=== PATIENT | male | born 1945 | race Caucasian/White ===

== ENCOUNTER 2024-10-14 22:04 | Inpatient (IN) | payer OTHER, SELFPAY ==
[2024-10-14] VITALS (7 sets, daily range): BP systolic 127–142; BP diastolic 81–100; BMI 31.4
[2024-10-14 13:52] LABS: % Basophils 0.2 % (0-2); % Immature Granulocytes 0.6 % (0-0.5); % Lymphocytes 4.5 % (20.5-51.1); % Monocytes 2.1 % (1.7-9.3); % Neutrophils 92.6 % (42.2-75.2); Absolute Lymphocytes 0.3 10^3/uL (1.2-3.4); Absolute Monocytes 0.1 10^3/uL (0.1-0.6); Absolute Neutrophils 5.8 10^3/uL (1.4-6.5); Hemoglobin 14.2 g/dL (13.0-18.0); Mean Corp Hgb Conc. 34.6 g/dL (33.0-37.0); Mean Corpuscular Hgb 31.3 pg (27.0-31.0); Mean Corpuscular Volume 90.3 fL (80.0-94.0); Mean Platelet Volume 12.2 fL (7.4-10.4); Nucleated Red Blood Cells % 0.3 % (-); Platelet Count 123 10^3/uL (130-400); Red Blood Cell Count 4.54 10^6/uL (4.70-6.10); Red Cell Dist. Width 13.5 % (11.5-14.5); White Blood Cell Count 6.2 10^3/uL (4.8-10.8)
[2024-10-14 14:02] LABS: Lactic Acid 1.6 mmol/L (0.7-2.0)
[2024-10-14 14:04] LABS: COVID-19 Antigen Negative (Negative)
[2024-10-14 14:25] LABS: Albumin 3.7 g/dl (3.5-5.0); Alkaline Phosphatase 295 U/L (38-126); Blood Urea Nitrogen 26 mg/dl (9-20); Calcium 8.6 mg/dl (8.4-10.2); Carbon Dioxide 30 mmol/L (22-30); Chloride 96 mmol/L (98-107); Glucose 113 mg/dl (70-99); Potassium 3.7 mmol/L (3.5-5.1); Sodium 135 mmol/L (135-145); Total Bilirubin 7.5 mg/dl (0.2-1.3); Total Protein 6.2 g/dl (6.3-8.2); eGFR > 60.00
[2024-10-14 14:43] LABS: ALT (SGPT) 1894 U/L (0-50); AST (SGOT) 836 U/L (17-59)
--- NOTE | 2024-10-14 16:07 | ED.GENMED ---
History of Present Illness
General
Chief Complaint: Abnormal Lab Value
Source: patient
Exam Limitations: none
Time Seen by Provider: 10/14/24 15:55
Nursing documentation reviewed up to this point in time: agreed with
History of Present Illness
History of Present Illness:
Patient to ED with complaint of elevated liver enzymes and yellow urine. Symptoms started approx 3 days ago. History of ITP, [facility]. Has routine labs drawn every 2 mos. LFT elevation noted on routine draw yesterday. He was
hospitalized 10/03-10/08 at [place] for pneumonia. He was diagnosed with Lung CA during that stay. Has appt with [facility] scheduled for next week. Patient reports PET scan completed and no additionl cancer concerns identified. 3 days ago he was
placed on doxycycline for sinusitis. He is also currently on a prednisone taper as part of his pneumonia treatment. Denies fever/chills. No n/v/d. Brought to ED by family for eval.
Past History
Past History
ED Past Medical History: Cancer (lung, new diagnosis), GERD, NIDDM and Other (ITP)
Review of Systems
Review of Systems
Allergies reviewed?: Yes
All Other Systems: ROS reviewed and negative except as documented in HPI and ROS
Constitutional: Reports no symptoms
EENT: Reports other (mild scleral icterus)
Respiratory: Reports no symptoms
Cardiac: Reports no symptoms
ABD/GI: Reports no symptoms
: Reports other (Yellow urine)
Musculoskeletal: Reports no symptoms
Skin: Reports no symptoms
Neurological: Reports no symptoms
Psychiatric: Reports no symptoms
Phy Exam
General Physical Exam
General Presentation: mild distress
General age: appears stated age
General Skin: warm, dry and other (Jaundice)
General Habitus: normal
General Mental: alert
General Hydration: appears well hydrated
Gastrointestinal Exam
Gastrointestinal Exam: normal bowel sounds, non tender, no pulsatile mass and no cva tenderness
Musculoskeletal Exam
Musculoskeletal Exam: full ROM and neuro vasc intact
Skin Exam
Skin Exam: warm/dry, no rash and jaundice (Mild)
Psychiatric Exam
Psychiatric Exam: normal mood/affect
Course
Orders/Labs/Results
Orders:
Orders
10/14/24 13:36
COVID-19 Antigen Urgent
Source: Nasal Swab
Complete Blood Count/With Diff Urgent
Comprehensive Metabolic Panel Urgent
Direct Bilirubin Urgent
Comment: ADD ON
Lactic Acid Urgent
Lipase Urgent
Comment: ADD ON
Influenza A+B Rapid Molecular Urgent
ALICIA Source: Nasal Swab
Specimen Description:
10/14/24 15:56
Add On- LAB Urgent
Tests Added?: lipase
10/14/24 16:05
US Abdomen Complete/Upper Urgent
Comment:
Reason For Exam: Elevated LFT's
10/14/24 16:28
Hepatitis A IgM Antibody Urgent
Hepatitis B Core Ab, IgM Urgent
Hepatitis B Surface Antibody Urgent
Hepatitis B Surface Antigen Urgent
Hepatitis C Antibody Urgent
Urinalysis Reflex To Culture Urgent
Date Specimen was Collected: 10/14/24
Time Specimen was Collected: 16:27
10/14/24 18:02
CT Abd/pelvis W Iv Cont Urgent
Comment:
Reason For Exam: Elevated LFT's, surgery request
10/14/24 18:26
0.9% Sodium Chloride 1000 ml [Nss] 1,000 ml IV BOLUS
10/14/24 20:39
Consult Surgery [SURGICAL CONSULT] Urgent
Consulting Provider: Bryan White
Was physician already notified: Yes
10/14/24 21:52
Admit/Transfer Patient As Directed
Co-Sign Provider:
Level of Care: Inpatient admission
Assign to:: Telemetry
Physician / Group: namrata seymour
Diagnosis: acute pancreatitis /cysts conc cancer, transam conc stone,lung ca
Reason for Telemetry: Arrhythmia
Date to Stop Telemetry: 10/17/24
Time to Stop Telemetry: 11:00
Reason for Hospitalization: acute pancreatitis /cysts conc cancer, transam conc stone,lung ca
Expected length of stay greater than two midnights?: Yes
ELOS- Estimated Length of Stay in days: 5
I certify the patient meets the requirements for IP care: Yes
Code Status As Directed
Resuscitation Status: Full Code
10/14/24 21:56
PRN Pain Medication Management As Directed
May give lesser potent ordered pain med per pt: Yes
preference::
Protocol:: Medication orders for pain may be administered in a
manner that supports deferring to patient preference
when the pt is:
- Requesting an ordered lesser potent pain medication.
Least to most potent pain medications are defined
as: acetaminophen < NSAID < tramadol < opioids
(morphine, oxycodone, hydromorphone).
- Requesting a lesser dose of the same medication IF
ORDERED.
- Requesting a less intrusive route of administration
if both routes are prescribed by the provider (PO <
IV).
10/14/24 22:04
Consult Notification Routine
Specialty to Notify: Gastroenterology
Date consulting provider notified: 10/15/24
Time consulting provider notified: 07:30
Notified:: Provider
Comment: Dr. Bailey notified via tiger text
GASTROINTESTINAL CONSULT Routine
Consulting Provider: Victor Manuel Bailey
Was physician already notified: No
Reason for consult: pancrtic mass conc ca,lft's conc obst uct, hx lung ca
10/14/24 22:05
Consult Notification Routine
Specialty to Notify: Hematology
Date consulting provider notified: 10/15/24
Time consulting provider notified: 07:30
Notified:: Provider
Comment: Dr. Almanza notified via tiger text
HEMATOLOGY CONSULT Routine
Consulting Provider: Tyron Almanza
Was physician already notified: No
Reason for consult: pancrtic mass conc ca,lft's conc obst uct, hx lung ca
10/15/24 00:39
Ondansetron Injectable [Zofran] 4 mg IV Q6HPRN PRN
10/15/24 00:39
Activity As Directed
Activity Level: With Assistance
Intake/ Output As Directed
Frequency: Per unit guidelines
Pneumatic Compression Sleeves As Directed
Type: Knee high
Vital Signs As Directed
Frequency: Per unit guidelines
Weight As Directed
Frequency: Daily
Pulse Ox/spot Check [RESP] Routine
Quantity: 1
DX Deep Vein Thrombosis Video Routine
10/15/24 05:49
Cardiovascular Evaluation IN AM
Complete Blood Count/With Diff IN AM
Comprehensive Metabolic Panel IN AM
10/16/24 06:00
Complete Blood Count/With Diff IN AM
Comprehensive Metabolic Panel IN AM
10/17/24 06:00
Complete Blood Count/With Diff IN AM
Comprehensive Metabolic Panel IN AM
10/17/24 11:00
DC Protocol for Telemetry ONCE
10/18/24 06:00
Complete Blood Count/With Diff IN AM
Comprehensive Metabolic Panel IN AM
10/19/24 06:00
Comprehensive Metabolic Panel IN AM
Abnormal Lab Results
10/14/24 10/14/24
13:36 16:28
RBC 4.54 L 10^6/uL
(4.70-6.10)
MCH 31.3 H pg
(27.0-31.0)
Plt Count 123 L 10^3/uL
(130-400)
MPV 12.2 H fL
(7.4-10.4)
Absolute Lymphs (auto) 0.3 L 10^3/uL
(1.2-3.4)
Immature Gran % 0.6 H %
(0-0.5)
Neutrophils % 92.6 H %
(42.2-75.2)
Lymphocytes % 4.5 L %
(20.5-51.1)
Chloride 96 L mmol/L
(98-107)
BUN 26 H mg/dl
(9-20)
Glucose 113 H mg/dl
(70-99)
Total Bilirubin 7.5 H mg/dl
(0.2-1.3)
Direct Bilirubin 5.8 H mg/dl
(0.0-0.4)
AST 836 H* U/L
(17-59)
ALT 1894 H* U/L
(0-50)
Alkaline Phosphatase 295 H U/L
(38-126)
Total Protein 6.2 L g/dl
(6.3-8.2)
Lipase 819 H U/L
(23-300)
Urine Glucose 3+ A
(Negative)
10/14/24 13:36
10/14/24 13:36
Vital Signs
Initial and Last Documented VS:
Initial Vital Signs
Temp Pulse Resp BP Pulse Ox
98.1 F 95 20 141/87 99
10/14/24 13:21 10/14/24 13:21 10/14/24 13:21 10/14/24 13:21 10/14/24 13:21
Last Documented Vital Signs
Temp Pulse Resp BP Pulse Ox
97.5 F 85 16 144/81 94
10/15/24 19:39 10/15/24 20:49 10/15/24 20:42 10/15/24 20:49 10/15/24 19:39
*Radiology
Radiology exam reviewed: radiology read reviewed
*Pulse Oximetry
Patient hypoxic: no
*Critical Care Note
Total Time (30-74mins, 75-104mins- exclusive of procedures): Not Applicable
Update Note
Update Note:
Labs reviewed. LFT elevation noted. US of upper abdomen reviewed, concerning for cholecystitis. Dr. white consulted. Requests CT abd/pelvis. Results reveal multiple small pancretitic cysts, possible mild pancreatitis, CBD dliitation. Will
admit to hospitalist service, MRCP in AM. CT finding of bibasilar pneumonia. He was admitted to [place] 1 week ago for same. Lung CA identified by bronchoscope. Treated at [place] with course of IV antibiotics. Afebrile here. WBC normal.
Pulse ox 98% RA On doxycyline po for sinusitis. WIll continue. Discussed findings with patient and family, questions answered.
ED Attending Note
-
Portions of this chart may have been created with voice recognition software.� Occasional wrong word or��sound alike� substitutions may have occurred due to the inherent limitations of voice recognition software.
Discharge Plan
Departure
Patient Disposition: Admit
Date of Disposition: 10/14/24
Time of Disposition: 20:34
Presentation/result/management discussed w/ accepting MD/DO: Hospitalist
Patient with high blood pressure during this ER visit?: No
Condition: Fair
Covid-19: Not Applicable
Discharge Problem:
Common bile duct dilatation, Elevated LFTs, Pneumonia
Interventions
Interventions:
*Risk Screen - Suicide Last Done: 10/14/24 15:48
*General Assessment Last Done: 10/14/24 13:21
*Neglect/Abuse Screening Last Done: 10/14/24 15:48
ED- Fall Risk Assessment Last Done: 10/14/24 16:27
*ED COVID-19 Vaccine History Last Done: 10/14/24 15:48
*Nursing Disposition Last Done: 10/15/24 16:51
[2024-10-14 16:43] LABS: Urine Albumin Trace (Neg - Trace); Urine Bilirubin Negative (Negative); Urine Character Clear (Clear); Urine Color Yellow; Urine Glucose 3+ (Negative); Urine Ketone Negative (Negative); Urine Leukocyte Negative (Negative); Urine Nitrite Negative (Negative); Urine Occult Blood Negative (Negative); Urine Urobilinogen Negative (Neg - 1+)
[2024-10-14 17:03] LABS: Lipase 819 U/L (23-300)
[2024-10-14 17:30] LABS: Hepatitis B Surface Antigen Negative (Negative)
[2024-10-14 17:33] LABS: Hepatitis A IgM Antibody Negative (Negative); Hepatitis B Core Ab, IgM Negative (Negative)
[2024-10-14 17:47] LABS: Hepatitis B Surface Antibody Negative; Hepatitis C Antibody Negative (Negative)
[2024-10-14] MEDS: NSS 1000 IV (18:31)
--- NOTE | 2024-10-14 20:56 | HPS.HSE ---
Family Physician
-
Family Physician: NOT KNOW UNKNOWN - PT DOES
Chief Complaint
-
Jaundice, left and right upper abdominal pain, mary urine
History of Present Illness
79-year-old male reports a 4-day history of jaundice with swelling to his face dark mary urine. He also reports some right upper and left upper quadrant abdominal pain on and off. He was admitted 10/03 to 10/08/2024 at [facility] for
inflammation /persistent cough secondary to adenocarcinoma that he had end of giJuly 2024. While admitted he had biopsy of his showing right lower lobe adenocarcinoma. He had sputum culture that grew positive Klebsiella which was
treated with IV cefepime until cultures were negative he was also treated with IV Solu-Medrol. According to his discharge records he had transaminitis thought to be due from Diflucan with AST 674, a LT 676, alk phos 596 they are currently slightly
higher now he did have a negative hepatitis panel and TB workup there that was negative also. He was given IV steroids and placed on 60 mg prednisone for 5 days to start 50 mg prednisone tomorrow to taper by every 5 days. His baseline saturation
is approximately 92-94% on room air per daughter May. He states he had further testing including a PET scan of his entire body, CT chest which he states no other areas lit up which appears to be true based on copy of his PET scan.. He has an
appointment on Wednesday 10/18 with [facility] for a treatment plan. He denies ever smoking. He does report a weight loss of 20 pounds from July until September along with a dry nonproductive cough. He reports seeing ENT Thursday 4
days ago 10/11/2024 due to maxillary sinus pressure with nasal green drainage he was placed on doxycycline 100 mg twice daily for a sinus infection. He also follows with Dr. Dietz from [facility] for ITP that was diagnosed in 2021 and is
currently managed with Tavalisse 150 mg daily. He denies current headache, confusion, blurred vision, sore throat, fever, chills, chest pain, palpitations, shortness of breath, nausea, vomiting, diarrhea, dysuria, frequency. He has chronic
bruising to his arms secondary to history of ITP
The patient has a past medical history of nonischemic cardiomyopathy most recent echo 03/04/2022 EF 45-50% ITP Dx [address] [facility], Dx bilateral lung adenocarcinoma via right lung biopsy 10/03/2024 [facility],
recurrent pneumonia July 2024, September 2024 [facility], sputum culture Klebsiella 10/03/2024 was negative by 10/07/2024 post cefepime, congestive heart failure chronic follows with Dr. Shaun Agarwal, GERD, GABRIELA CPAP intolerant.
Medical History
Past Medical History
Past Medical History: Reports Other
Additional Past Medical History:
ITP Dx [address] [facility]
Dx RLL adenocarcinoma via biopsy 10/06/2024 [facility]
Sputum culture with Klebsiella 10/03/2024 treated with cefepime negative culture by 10/07/2024
recurrent pneumonia July 2024, September 2024 [facility]
Transaminitis thought to be due to Diflucan 10/03/2024
Congestive heart failure chronic follows with Dr. Shaun Agarwal
Nonischemic cardiomyopathy EF 45-50% 03/10/2022
GERD
GABRIELA noncompliant CPAP
-Anxiety
-Sinus infection Dx 10/11/2024
Past Surgical History: Reports Other
Additional Past Surgical History:
Bilateral hip replacements-[facility]
Right shoulder replacement
Social History
Tobacco: Non-smoker
Alcohol: Occasional (Patient drinks 1 beer or drink a week denies history of weekly drinking/heavy drinking)
Personal:
Living: With Family ()
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
Family History
Family History: Other (1 daughter history MS Dx age 30 still living, 1 brother age 67 MS, mother breast cancer age 80, father age 82 CHF, 3 daughters history of gallstones)
Allergies / Home Medications
Allergies reflects when Allergies were last updated in [facility].
Home Medications with original date entered in [facility]
Allergy/Medication List:
Allergies
Allergy/AdvReac Type Severity Reaction Status Date / Time
Penicillins Allergy Unknown Verified 10/14/24 13:21
Home Medications
Fifi-D 24 Hour 1 tab PO DAILY 10/14/24
Entresto 97 mg PO BID 10/14/24
Glucosamine Chondroitin 1 cap PO DAILY 10/14/24
Hyper-Shaun 3.5 % inhalation BID 10/14/24
Jardiance 10 mg PO DAILY 10/14/24
Probiotic Blend 1 cap PO DAILY 10/14/24
albuterol sulfate 2.5 mg inhalation BID 10/14/24
carvedilol 25 mg tablet 25 mg PO BID 10/14/24
doxycycline monohydrate 100 mg PO BID 10/14/24
fluticasone fur. 100 mcg-umeclid 62.5 mcg-vilant 25 mcg inhalat.powder (Trelegy Ellipta) 1 inh inhalation DAILY 10/14/24
fostamatinib 150 mg tablet (Tavalisse) 150 mg PO BID 10/14/24
ipratropium bromide 2 spray intranasal DAILY PRN Congestion 10/14/24
latanoprost 0.005 % eye drops 1 drp BOTH EYES DAILY 10/14/24
lorazepam 0.5 mg PO HS 10/14/24
omeprazole 40 mg PO DAILY 10/14/24
prednisone See Taper 10/14/24
spironolactone 25 mg PO DAILY 10/14/24
Review of Systems
-
History Source: Patient and Family (Daughter May via phone)
A 12 point ROS was completed and negative except as noted: Yes
Constitutional: Reports Weight Loss (20 pounds past 2 months), Fatigue and Other (Jaundice 4 days swelling to face and neck 4 days); Denies Fever
EENT: Denies Sore Throat or Runny Nose
Respiratory: Reports Cough (Persistent dry) and Trouble Breathing
Cardiac: Denies Chest Pain, Diaphoresis, Palpitations or Syncope
Abdomen/GI: Reports Abdominal Pain (Left and right upper quadrants) and Nausea; Denies Vomiting, Diarrhea, Constipated, Bloody Stools, Black Stools or Anorexia
: Reports Dark Urine; Denies Dysuria, Frequency, Flank Pain or Urgency
Musculoskeletal: Denies Joint Pain or Edema
Skin: Reports Other (Chronic bruising to arms secondary to history of ITP); Denies Itching or Rash
Neurological: Denies Dizzy, Headache or Weakness
Endocrine: Reports No Symptoms
Hematologic/Lymphatic: Reports No Symptoms
Psych: Reports Calm
Physical Exam
Vital Signs
Vital Signs
Temp Pulse Resp BP Pulse Ox
98.1 F 91 30 138/86 92
10/14/24 13:21 10/14/24 18:45 10/14/24 18:45 10/14/24 18:01 10/14/24 18:45
Physical Exam
General: Comfortable and Conversant; No Fever or Chills
HEENT: NormoCephalic, Moist mucous membranes, PERRLA, [place] Conjunctivae, No Ptosis and Other (scleral icterus, swollen face neck almost garcia appearance has been on steroids since July)
Respiratory: Rhonchi (Wet sounding rhonchi bilateral both upper lung petty); No Wheezes
Cardiac: S1/S2 and Regular Rhythm; No Murmur, Rub, Gallop or Peripheral Edema
Breast: Deferred by me
GI: Soft, Non Distended, Normal Bowel Sounds, Tender (Left and right upper quadrant) and No Hepatosplenomegaly
Rectal: Deferred by Provider
Genito-urinary: Deferred by me and No costovertebral tender
Musculoskeletal: No Clubbing, No Cyanosis and No Edema
Skin: Warm, Dry and Other (Some scattered bruising to bilateral arms history of ITP no generalized bruises to body); No Rash or Jaundice
Neuro: AO x 3 (Slight poor historian given recent multiple appointments patient states), No Motor Deficits, No Sensory Deficits and Other (Diffuse jaundice); No Slurred Speech, Facial Droop, Tremors or Sedated
Psych: Calm
Laboratory Results
-
10/14/24 13:36
10/14/24 13:36
Laboratory Results
Lactic Acid 1.6 mmol/L (0.7-2.0) 10/14/24 13:36
Total Bilirubin 7.5 mg/dl (0.2-1.3) H 10/14/24 13:36
AST 836 U/L (17-59) H* 10/14/24 13:36
ALT 1894 U/L (0-50) H* 10/14/24 13:36
Alkaline Phosphatase 295 U/L (38-126) H 10/14/24 13:36
Lipase 819 U/L (23-300) H 10/14/24 13:36
Impression/Plan
-
Impression/plan:
Admit to Tele
#Acute pancreatitis/multiple cysts concerning for Malignancy vs pancreatic cysts
#New left adrenal mass
-Dilaudid as needed pain, IV Zofran as needed
-NPO
-Consult GI
-Consult Oncology
-IV LR 100 cc/h
-Check MRCP/MRI abdomen in a.m.
-Follow CBC, CMP, T. bili Check PTT, INR in a.m.
-Consult PT/OT/case management
#Acute worsening Transaminitis secondary to possible biliary stone vs ACUTE CHOLEYCYSTITIS versus Pancreatic MASS vs reported recent suspected from reaction to Diflucan per [place] records
AST 836, ALT 1894, alk phos 295, T. bili 7.5, lipase 819(10/03/2024 AST 674, ALT 676, alk phos 596,)
-Check indirect bili
-Will give IV Levaquin 500 mg daily
-Follow CBC, CMP
CT abdomen pelvis with IV contrast:
1. Haziness about the pancreatic head concerning for mild acute pancreatitis. Many small pancreatic cysts likely benign malignancy cannot be excluded Recommend nonurgent MRI
2. Moderate intrahepatic biliary dilatation may be due to stone or sludge in the CBD. Findings due to one of the pancreatic masses or a mass not well-seen by CT would evaluate with MRCP.
3. Bilateral 2 small to characterize hypodense renal lesions likely benign cysts
4. Left adrenal mass is noted may be benign or malignant
5. Moderate fecal material throughout the colon
6. Diverticulosis
7. Findings suggesting significant bibasilar pneumonia
Abdominal ultrasound: Gallbladder sludge and probable tiny gallstones.
Mild intra and extrahepatic biliary dilatation. These findings can be seen with acute cholecystitis.
Clinical and laboratory correlation recommended
Hepatic fatty infiltration
Simple bilateral renal cysts.
#Recent Adenocarcinoma Dx RLL ADENOCARCINOMA via BX 10/06/24 at [facility]
#Persistent Pneumonia treated July 2024 and 10/03/2024 at [facility] inpatient-
-had outpatient sputum cultures that were positive for Klebsiella he was started on IV cefepime per ID in the hospital on 10/03/2024 sputum cultures were negative by discharge on 10/07/2024 per report.
Has appointment with [facility] 10/18/2024 to discuss plan for adenocarcinoma
-Patient started steroids inpatient 10/03/2024 transition to 60 mg x 5 days to start 50 mg x 5 days tomorrow 10/15/2024 to taper by 10 mg every 5 days until finished(when patient tapers off of steroids he has a persistent cough per daughter)
-Consult Oncology
See scanned reports in chart of PET scan, lung biopsy, ID consult, pulmonary consult, hospitalist progress note, bronchoscopy report, lab work, CT chest, discharge summary)
-PET scan from 09/30/2024 reports shows numerous bilateral pulmonary nodules with surrounding groundglass attenuation and hypermetabolic activity NO other active areas throughout the chest abdomen and pelvis
#Hx of ITP Dx 2021
Patient follows with [address] Dietz
-PLT 123
-Continue Tavalisse 150 mg daily
# Nonischemic cardiomyopathy-EF 45/50% 03/10/2022
#Chronic CHF unknown type
-I/O, daily weight
-Patient follows with Dr. Beckett at [place] and Dr. Dunn at [place]
-Hold Entresto, Jardiance
#GERD
-Continue IV omeprazole 40 mg daily
#GABRIELA intolerant CPAP
DVT prophylaxis
SCDs
Plt 123
Full code
[2024-10-14 22:43] LABS: Direct Bilirubin 5.8 mg/dl (0.0-0.4)
[2024-10-14] MEDS: LR 1000 IV (23:42)
[2024-10-14] MEDS: LEVAQUIN 100 IV (23:52)
[2024-10-14] MEDS: ATIVAN 0.5 MG PO (23:52)
[2024-10-15] VITALS (14 sets, daily range): BP systolic 116–143; BP diastolic 66–92; BMI 30.1; BMI 28.8
[2024-10-15] MEDS: NON-FORMULARY ITEM 150 MG PO ×2 (00:43→09:35)
[2024-10-15] MEDS: ZOFRAN 4 MG IV (00:44)
[2024-10-15 06:08] LABS: PT 13.5 Sec (11.4-14.6)
[2024-10-15 06:23] LABS: % Immature Granulocytes 1.1 % (0-0.5); % Lymphocytes 7.4 % (20.5-51.1); % Monocytes 2.7 % (1.7-9.3); % Neutrophils 88.8 % (42.2-75.2); Absolute Immature Granulocytes 0.1 10^3/uL (0-0.05); Absolute Lymphocytes 0.3 10^3/uL (1.2-3.4); Absolute Monocytes 0.1 10^3/uL (0.1-0.6); Absolute Neutrophils 3.9 10^3/uL (1.4-6.5); Hemoglobin 13.1 g/dL (13.0-18.0); Mean Corp Hgb Conc. 34.5 g/dL (33.0-37.0); Mean Corpuscular Hgb 31.3 pg (27.0-31.0); Mean Corpuscular Volume 90.9 fL (80.0-94.0); Mean Platelet Volume 12.1 fL (7.4-10.4); Nucleated Red Blood Cells % 0.7 % (-); Platelet Count 101 10^3/uL (130-400); Red Blood Cell Count 4.18 10^6/uL (4.70-6.10); Red Cell Dist. Width 13.7 % (11.5-14.5); White Blood Cell Count 4.4 10^3/uL (4.8-10.8)
[2024-10-15 06:42] LABS: ALT (SGPT) 1761 U/L (0-50); AST (SGOT) 754 U/L (17-59); Albumin 3.2 g/dl (3.5-5.0); Alkaline Phosphatase 265 U/L (38-126); Blood Urea Nitrogen 21 mg/dl (9-20); Calcium 8.2 mg/dl (8.4-10.2); Carbon Dioxide 29 mmol/L (22-30); Chloride 96 mmol/L (98-107); Estimated Creatinine Clearance > 125 ml/min; Glucose 97 mg/dl (70-99); HDL Cholesterol 83 mg/dl; LDL Cholesterol, Calculated 152 mg/dl; Lipase 1050 U/L (23-300); Potassium 3.8 mmol/L (3.5-5.1); Sodium 135 mmol/L (135-145); Total Bilirubin 7.4 mg/dl (0.2-1.3); Total Cholesterol 257 mg/dl (50-199); Total Protein 5.5 g/dl (6.3-8.2); Triglyceride 110 mg/dl (10-149); Very Low Density Lipoprotein 22 mg/dl (0-30); eGFR > 60.00
[2024-10-15] MEDS: SYMBICORT 80/4.5 MCG INHALER 2 PUFF INH ×2 (08:30→20:38)
[2024-10-15] MEDS: SPIRIVA RESPIMAT 2.5 MCG 2 PUFF INH (08:31)
[2024-10-15] MEDS: VENTOLIN NEBULES 2.5 MG INH ×2 (08:32→20:39)
--- NOTE | 2024-10-15 08:34 | CON.GI ---
Consultation
-
Date/Time Consultation Requested: 10/14/24 2204
Date/Time Consultation Performed: 10/15/24 0800
Requesting Provider: HEATHER Kenny
Performing Provider: Dr Victor Manuel Bailey / Felicia Reyes PA-C
Reason for Consultation: elevated LFTs, jaundice
Medical History
Chief Complaint / HPI
Chief Complaint: elevated LFTs, jaundice, abdominal pain
History of Present Illness:
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 Upon discharge from [facility], he did have elevated LFTs then too
with transaminitis noted (AST 674, ALT 676) which per records was thought to be secondary to Diflucan. Patient denies any prior history of elevated LFTs or jaundice and has no personal or family history of liver disease. Hepatitis serologies done at
[facility] were reportedly negative. He was complaining of mild abdominal pain, felt both in the right upper abdomen as well as mild generalized discomfort of the lower abdomen. He denies fever, nausea, vomiting, or diarrhea. +chills. Patient also endorses
an unintentional 20 pound weight loss since July. He reportedly had further testing (including PET scan, negative per record/family). He has initial appointment next week (10/18) at [facility] to discuss treatment options for the
lung CA.
Initial labs in the ER as follows: WBC 6.2, Hgb 14.2, platelets 123, PT 13.5, INR 1.0, NA 135, K3.8, CL 96, CO2 29, BUN 21, creatinine 0.6. Total bilirubin 7.5, direct bilirubin 5.8, AST 836, ALT 1894, alk phos 295 and lipase 819. Imaging,
including ultrasound and CT were obtained. Ultrasound showing gallbladder sludge/tiny gallstones with mild intra and extrahepatic biliary dilatation, as well as fatty liver. CT abdomen/pelvis showed haziness of the pancreatic head, concerning for
mild acute pancreatitis, as well as many small pancreatic cysts, noted that malignancy cannot be excluded with recommendation for further imaging with MRI/MRCP. Moderate intrahepatic biliary dilatation noted. Bibasilar pneumonia also noted on CT.
MRI/MRCP has been ordered, pending.
LFTs today still significantly elevated, but did trend downwards very slightly. Total bilirubin 7.4, AST 754, ALT 1761, alk phos 265. Lipase increased to 1050. Patient denies a prior history of pancreatitis. He drinks alcohol, about 1 drink per
week. He states that he drank more heavily while in college, but was otherwise never a heavy drinker. He does not smoke.
Past Medical History
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
Past Surgical History: Other (bilateral hip replacement, shoulder replacement)
Social History
Tobacco: Non-Smoker
Alcohol: Occasional
Drug: None
Personal:
Living: With Family
Employment: Retired
Family History
Family History: Other (3 daughters had gallbladder issues, grandson has Gilbert's)
Allergies / Home Medications
Allergy/AdvReac Type Severity Reaction Status Date / Time
Penicillins Allergy Unknown Verified 10/14/24 13:21
�Medication �Instructions �Recorded
Fifi-D 24 Hour 1 tab PO DAILY 10/14/24
Entresto 97 mg PO BID 10/14/24
Glucosamine Chondroitin 1 cap PO DAILY 10/14/24
Hyper-Shaun 3.5 % inhalation BID 10/14/24
Jardiance 10 mg PO DAILY 10/14/24
Probiotic Blend 1 cap PO DAILY 10/14/24
albuterol sulfate 2.5 mg inhalation BID 10/14/24
carvedilol 25 mg tablet 25 mg PO BID 10/14/24
doxycycline monohydrate 100 mg PO BID 10/14/24
fluticasone fur. 100 mcg-umeclid 1 inh inhalation DAILY 10/14/24
62.5 mcg-vilant 25 mcg
inhalat.powder (Trelegy Ellipta)
fostamatinib 150 mg tablet 150 mg PO BID 10/14/24
(Tavalisse)
ipratropium bromide 2 spray intranasal DAILY PRN 10/14/24
Congestion
latanoprost 0.005 % eye drops 1 drp BOTH EYES DAILY 10/14/24
lorazepam 0.5 mg PO HS 10/14/24
omeprazole 40 mg PO DAILY 10/14/24
prednisone See Taper 10/14/24
spironolactone 25 mg PO DAILY 10/14/24
Review of Systems
-
History Source: Patient
All other systems: A 12 pt ROS was Negative except as stated above in HPI
Vital Signs
Temp Pulse Resp BP Pulse Ox
98.1 F 87 21 127/85 91
10/14/24 13:21 10/15/24 01:45 10/15/24 01:45 10/15/24 01:00 10/15/24 01:45
Physical Exam
Exam
General: Well Developed, Well Nourished and No Apparent Distress
HEENT: Other (+scleral icterus)
Respiratory: Rhonchi (bilaterally)
Cardiac: Regular Rhythm
GI: Soft, Non Distended, Normal Bowel Sounds and Tender (+mild tenderness of the right upper quadrant)
Skin: Warm and Dry
Neuro: AO x 3
Psych: Calm
Results
WBC 4.4 10^3/uL (4.8-10.8) L 10/15/24 05:49
Hgb 13.1 g/dL (13.0-18.0) 10/15/24 05:49
Hct 38.0 % (39.0-52.0) L 10/15/24 05:49
MCV 90.9 fL (80.0-94.0) 10/15/24 05:49
Plt Count 101 10^3/uL (130-400) L 10/15/24 05:49
Absolute Neuts (auto) 3.9 10^3/uL (1.4-6.5) 10/15/24 05:49
PT 13.5 Sec (11.4-14.6) 10/15/24 05:49
INR 1.00 10/15/24 05:49
Sodium 135 mmol/L (135-145) 10/15/24 05:49
Potassium 3.8 mmol/L (3.5-5.1) 10/15/24 05:49
Chloride 96 mmol/L (98-107) L 10/15/24 05:49
Carbon Dioxide 29 mmol/L (22-30) 10/15/24 05:49
BUN 21 mg/dl (9-20) H 10/15/24 05:49
Creatinine 0.6 mg/dL (0.7-1.3) L 10/15/24 05:49
Calcium 8.2 mg/dl (8.4-10.2) L 10/15/24 05:49
Total Bilirubin 7.4 mg/dl (0.2-1.3) H 10/15/24 05:49
AST 754 U/L (17-59) H* 10/15/24 05:49
ALT 1761 U/L (0-50) H* 10/15/24 05:49
Alkaline Phosphatase 265 U/L (38-126) H 10/15/24 05:49
Lipase 1050 U/L (23-300) H* 10/15/24 05:49
Hepatitis A IgM Ab Negative (Negative) 10/14/24 16:28
Hep Bs Antibody Negative 10/14/24 16:28
Hep B Core IgM Ab Negative (Negative) 10/14/24 16:28
Hepatitis C Antibody Negative (Negative) 10/14/24 16:28
Diagnostic Image Results:
CT Abdomen/Pelvis with IV and oral contrast 10/14/24:
-Findings suggesting significant bibasilar pneumonia. See above.
-Haziness about the pancreatic head concerning for mild acute pancreatitis.
-Many small pancreatic cysts. Likely benign. Malignancy cannot be excluded. Nonurgent MRI examination recommended when the patient is able if not previously evaluated
-Moderate intrahepatic biliary dilatation. Along with the recent ultrasound findings, this may be due to a stone or sludge in the CBD. Findings due to one of the pancreatic masses or a mass not well seen by CT examination cannot be excluded. This
could further be evaluated by MRCP.
-Nonobstructing bilateral renal stones.
-Bilateral too small to characterize hypodense renal lesions likely benign cysts.
-Left adrenal masses noted. These may be a benign or malignant. Nonurgent MRI examination recommended
-Moderate fecal material throughout the colon.
-Diverticulosis
US Abdomen 10/14/24:
-Gallbladder sludge and probable tiny gallstones. Mild intra and extrahepatic biliary dilatation. These findings can be seen with acute cholecystitis. Clinical and laboratory correlation recommended
-Hepatic fatty infiltration
-Simple bilateral renal cysts.
-Nonvisualization of the pancreas and proximal IVC and abdominal aorta due to overlying bowel gas.
Prior GI Procedures:
EGD: ~20 years ago per pt
Colonoscopy: ~6 months ago ([facility]), showed small polyps per pt
Assessment / Plan
-
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
abdominal pain, with significant elevated LFTs and imaging showing mild acute pancreatitis as well as pancreatic cysts, with biliary dilatation raising concern for possible CBD stone. He did have elevated LFTs upon discharge from [facility] on 10/08/24,
thought to be secondary to Diflucan.
IMPRESSION / PLAN:
Acute pancreatitis / Multiple pancreatic cysts
- etiology possibly secondary to gallstone pancreatitis vs medications vs other - concern for possible underlying malignancy
- await MRI/MRCP results
- continue IV fluids
- continue NPO for now
- pain control and antiemetics PRN, per hospitalist
- to consider EUS and/or ERCP pending MR imaging results as above
Elevated LFTs
- possible etiology including obstructive process- rule out CBD stone vs DILI vs other
- continue to trend LFTs
- Hepatitis serologies negative, would hold off at this point on further liver workup
- continue antibiotics, although clinically does not present as cholangitis
Oncology and General Surgery consulted as well.
Other medical problems managed as per Hospitalist team. We will follow.
-
-
Thank you for consultation and allowing me to participate in the patient's care. Please call the regional rehabilitation director GI physician during the after hours with any questions or concerns.
[2024-10-15] MEDS: DELTASONE 50 MG PO (09:34)
[2024-10-15] MEDS: NSS (PRESERVATIVE FREE) 10 ML IV (09:35)
[2024-10-15] MEDS: PROTONIX IV 40 MG IV (09:35)
[2024-10-15] MEDS: ATIVAN 0.5 MG PO ×2 (09:51→20:33)
[2024-10-15] MEDS: LR 1000 IV (11:01)
[2024-10-15] MEDS: COREG 25 MG PO ×2 (11:02→20:49)
[2024-10-15] MEDS: XALATAN OPHTHALMIC SOLUTION 1 DROP BOTH EYES (11:02)
--- NOTE | 2024-10-15 11:35 | W.PN.HOSP.TC ---
Today's Communication/Plan
-
see bold
Assessment / Plan
Assessment / Plan
Gen: NAD, AAOx3, appears chronically ill.
Eyes: EOMI, PERRLA, mild scleral icterus.
Neck: supple.
CV: RRR, +S1/S2, no m/r/g.
Resp: CTAB, no rales, wheezes, or rhonchi.
Abd: +BS, soft, NT, ND
Skin: No rashes.
Neuro: CN 2-12 intact, non-focal.
Psych: Normal mood and affect.
CT A/P w/IV: Findings suggesting significant bibasilar pneumonia. Haziness about the pancreatic head concerning for mild acute pancreatitis. Many small pancreatic cysts. Likely benign. Malignancy cannot be excluded. Nonurgent MRI examination
recommended when the patient is able if not previously evaluated. Moderate intrahepatic biliary dilatation. Along with the recent ultrasound findings, this may be due to a stone or sludge in the CBD. Findings due to one of the pancreatic masses or a
mass not well seen by CT examination cannot be excluded. This could further be evaluated by MRCP. Nonobstructing bilateral renal stones. Bilateral too small to characterize hypodense renal lesions likely benign cysts. Left adrenal masses noted.
These may be a benign or malignant. Nonurgent MRI examination recommended. Moderate fecal material throughout the colon. Diverticulosis.
Abd U/S: Gallbladder sludge and probable tiny gallstones. Mild intra and extrahepatic biliary dilatation. These findings can be seen with acute cholecystitis. Clinical and laboratory correlation recommended. Hepatic fatty infiltration. Simple
bilateral renal cysts. Nonvisualization of the pancreas and proximal IVC and abdominal aorta due to overlying bowel gas.
MRCP:
1. Obstructing pancreatic head mass in keeping with primary pancreatic neoplasm, measuring approximately 3.3 x 2.3 x 2.1 cm. Associated biliary and pancreatic ductal dilatation. Evaluation for vascular involvement limited without contrast, although
no obvious involvement is appreciated.
2. Numerous scattered pancreatic cystic lesions likely combination of side branch intraductal papillary mucinous neoplasms and pseudocysts.
3. Severe bilateral pneumonia.
4. Gallbladder wall edema/pericholecystic fluid, likely reactive.
Acute pancreatitis due to obstructing pancreatic head mass:
-likely malignancy based on imaging above
-new left adrenal mass
-NPO/IVFs
-discussed with GI, EUS/ERCP on 10/17/24
-Dilaudid/Zofran PRN
-ONC to see
-trend LFTs although clearly they will not improve without relief of obstruction
Bibasilar PNA:
-cont Levaquin
-Persistent Pneumonia treated July 2024 and 10/03/2024 at [facility]
-had outpatient sputum cultures that were positive for Klebsiella he was started on IV cefepime per ID in the hospital on 10/03/2024 sputum cultures were negative by discharge on 10/07/2024 per report.
-Patient started steroids inpatient 10/03/2024 transition to 60 mg x 5 days to start 50 mg x 5 days tomorrow 10/15/2024 to taper by 10 mg every 5 days until finished (when patient tapers off of steroids he has a persistent cough per daughter)
-PET scan from 09/30/2024 reports shows numerous bilateral pulmonary nodules with surrounding groundglass attenuation and hypermetabolic activity NO other active areas throughout the chest abdomen and pelvis
-c/s pulm and ID
Other problems:
Recent diagnosis of RLL Adenocarcinoma via Bx 10/06/24 at [facility]
h/o ITP: Dx 2021, ONC to see, cont Tavalisse
Chronic HFmrEF: Holding Entresto/Jardiance. Cont BB. Daily wts, I/Os.
GERD: cont PPI
GABRIELA, intolerant CPAP
Obesity due to excess calories
FULL/Lovenox
Total time spent on today's encounter was 50 minutes which included time spent in counseling the patient/family regarding diagnosis and treatment plan as listed above, goals of care, and symptom management. Case was discussed with nursing staff,
specialists, and care coordinators/case management. All labs and imaging personally reviewed by me. Remainder the time spent in detailed review of previous records, lab data, imaging, and other medical provider documentation.
Anticipated Discharge: > 48 hours
Subjective/Interval History
-
Date of Service: October 15, 2024
No new complaints.
Objective Data
-
Labs:
Laboratory Results
10/15/24
05:49
WBC 4.4 L
Hgb 13.1
Hct 38.0 L
Plt Count 101 L
PT 13.5
INR 1.00
Sodium 135
Potassium 3.8
Chloride 96 L
Carbon Dioxide 29
BUN 21 H
Creatinine 0.6 L
Glucose 97
Calcium 8.2 L
Total Bilirubin 7.4 H
AST 754 H*
ALT 1761 H*
Alkaline Phosphatase 265 H
Vital Signs:
Vital Signs
Temp Pulse Resp BP Pulse Ox
98.2 F 88 27 134/87 94
10/15/24 11:10 10/15/24 11:00 10/15/24 11:00 10/15/24 10:56 10/15/24 11:00
I&O
10/14/24 10/15/24 10/16/24
06:59 06:59 06:59
Intake Total 600 / 600
Output Total 800 / 800
Balance -200 / -200
--- NOTE | 2024-10-15 12:27 | PTCARENOTE ---
Sa02 87-89% at rest. 2L O2 applied.
--- NOTE | 2024-10-15 13:02 | CON.PUL ---
Consultation
Consultation Request
Date/Time Consultation Requested: 10/15/2024 - 1239
Date/Time Consultation Performed: 10/15/2024 - 1301
Requesting Provider: Dr. Garcia
Performing Provider: Dr. Bonilla
Reason for Consultation: Multifocal consolidations; PNA
Medical History
-
Chief Complaint: Elevated liver enzymes
History of Present Illness:
79-year-old male with a past medical history of right-sided lung cancer via biopsy at [facility] on 10/06/2024, history of ITP (diagnosed 2021), history of Klebsiella pneumonia seen on sputum culture from 10/03/2024, recurrent pneumonia in
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 He has reported that over
the last 4 days he has been jaundiced with swelling to his face and dark mary-colored urine. Also having some right upper and left upper quadrant abdominal pain which has been occasional. He was admitted to [facility] from 10/03 -
10/08/2024 due to a cough which was found to be due to adenocarcinoma, which was biopsied during his recent admission. He had a previously negative hepatitis panel and TB workup was also negative. He was given IV steroids during his last
hospitalization and placed onto prednisone 60 mg daily with a taper. He also apparently had a PET/CT scan of his body. He has plans to follow-up with [facility] for his lung cancer. He is lost about 20 pounds since July 2024 and
has had a dry cough recently. He was recently placed on doxycycline 100 mg twice daily after seeing ENT 4 days ago and diagnosed with a sinus infection. He is managed on Tavalisse for a history of ITP. He currently denies shortness of breath,
nausea, vomiting, diarrhea, sore throat or headache. In the ER he was afebrile, and saturating 99% on room air with BP 141/87 and heart rate 95. Initial labs showed WBC normal at 6.2, Hb 14.2, platelet count 123, AST 36, ALT 1894, and T. bili 7.5.
His lipase was elevated at 819. Urinalysis negative for signs of UTI. His COVID-19 antigen was negative. Abdominal ultrasound showed gallbladder sludge with tiny gallstones with mild intra and extrahepatic biliary dilatation. Subsequent CT
abdomen/pelvis on 10/14/2024 showed bibasilar pneumonia with haziness about the pancreatic head concerning for mild acute pancreatitis, and many small pancreatic cyst. Also moderate intrahepatic biliary dilatation. He had an MRCP on 10/15/2024
showing an obstructive pancreatic head mass measuring 3.3 x 2.3 x 2.1 cm. There was associated biliary and pancreatic ductal dilatation. Also severe bilateral pneumonia with numerous scattered pancreatic cysts likely a combination of sidebranch
intraductal papillary mucinous neoplasms and pseudocyst. Due to his severe bilateral pneumonia, pulmonary service now consulted for additional management/recommendations.
Pt seen and evaluated and he was resting in bed in [facility]. He is on room air breathing comfortably. He has a dry cough. Denies chest pain, IVAN, abd pain, N/V/f/c.
PMHx: History of right lower lobe adenocarcinoma via biopsy from [facility] (10/06/2024), history of ITP (diagnosed 2021), history of Klebsiella pneumonia seen on sputum culture from 10/03/2024), recurrent pneumonia in July 2024 + September
2024, history of transaminitis suspected to be from Diflucan with drug-induced liver injury, chronic HFmrEf, history of NICM, GERD, GABRIELA noncompliant with CPAP, anxiety, sinus infection in 10/11/2024
PSHx: Bilateral hip replacements, right shoulder replacement
Past Medical History
Past Medical History: Other (Above as per HPI)
Past Surgical History: Other (Above as per HPI)
Social History
Tobacco: Non-smoker
Alcohol: Occasional (1 beer per week)
Drug: None
Personal:
Living: With Family
Family History
Family History: Cancer (Mother: Breast cancer) and Other (Daughter + brother: MS; father: CHF; daughters: History of gallstones)
Allergies / Home Medications
Allergies
Allergy/AdvReac Type Severity Reaction Status Date / Time
Penicillins Allergy Unknown Verified 10/14/24 13:21
Home Medications
�Medication �Instructions �Recorded �Confirmed �Last Taken �Type
Fifi-D 24 Hour 1 tab PO DAILY Allergies 10/14/24 10/14/24 Unknown History
Entresto 97 mg PO BID Heart Failure 10/14/24 10/14/24 10/14/24 09:00 History
Glucosamine Chondroitin 1 cap PO DAILY Supplement 10/14/24 10/14/24 Unknown History
Hyper-Shaun 3.5 % inhalation BID 10/14/24 10/14/24 Unknown History
Lung/Breathing Issues
Jardiance 10 mg PO DAILY Diabetes 10/14/24 10/14/24 10/14/24 09:00 History
Probiotic Blend 1 cap PO DAILY Supplement 10/14/24 10/14/24 10/14/24 09:00 History
albuterol sulfate 2.5 mg inhalation BID 10/14/24 10/14/24 Unknown History
Lung/Breathing Issues
carvedilol 25 mg tablet 25 mg PO BID Blood Pressure 10/14/24 10/14/24 10/14/24 09:00 History
doxycycline monohydrate 100 mg PO BID Infection 10/14/24 10/14/24 10/14/24 09:00 History
fluticasone fur. 100 mcg-umeclid 1 inh inhalation DAILY 10/14/24 10/14/24 10/14/24 09:00 History
62.5 mcg-vilant 25 mcg Lung/Breathing Issues
inhalat.powder (Trelegy Ellipta)
fostamatinib 150 mg tablet 150 mg PO BID Tyrosine Kinase 10/14/24 10/14/24 10/14/24 09:00 History
(Tavalisse) (Syk) In
ipratropium bromide 2 spray intranasal DAILY PRN 10/14/24 10/14/24 Unknown History
Congestion
latanoprost 0.005 % eye drops 1 drp BOTH EYES DAILY Eye Condition 10/14/24 10/14/24 Unknown History
lorazepam 0.5 mg PO HS Mental Health/Anxiety 10/14/24 10/14/24 Unknown History
omeprazole 40 mg PO DAILY GERD 10/14/24 10/14/24 10/14/24 09:00 History
prednisone See Taper INFLAMMATION 10/14/24 10/14/24 09:00 History
spironolactone 25 mg PO DAILY Fluid 10/14/24 10/14/24 Unknown History
Retention/Swelling
Review of Systems
-
History Source: Patient
All other systems: Negative unless noted
Vitals / Labs / Diagnostic Testing
Vital Signs
Temp Pulse Resp BP Pulse Ox
98.2 F 88 27 134/87 94
10/15/24 11:10 10/15/24 11:00 10/15/24 11:00 10/15/24 10:56 10/15/24 11:00
Lab Data
10/15/24 05:49
10/15/24 05:49
Laboratory Results
10/15/24
05:49
PT 13.5
INR 1.00
Microbiology
10/14/24 13:36 Nasal Swab Influenza Types A & B (GEORGE) - Final
Negative for Influenza A & B, NAAT
Negative results must be combined with clinical observations
and patient history.
Nucleic Acid Amplification test (NAAT)performed on the
[employer] platform.
Diagnostic Testing:
Physical Exam
-
HEENT: Normocephalic and Anicteric
Cardiovascular: S1/S2, Rub (negative) and Peripheral Edema (negative)
Respiratory: Wheeze (negative), Rales (bilateral), Rhonchi (bilateral) and Non-Labored Respirations
GI: Soft, Non Distended, Tender (RUQ) and Normal Bowel Sounds
Neurology: AO x 3 and Tremors (negative)
Skin: Warm and Dry
General: Comfortable and Other (Jaundiced)
Assessment
-
Assessment: 79-year-old male with a past medical history of right-sided lung cancer via biopsy at [facility] on 10/06/2024, history of ITP (diagnosed 2021), history of Klebsiella pneumonia seen on sputum culture from 10/03/2024, recurrent
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 He has
reported that over the last 4 days he has been jaundiced with swelling to his face and dark mary-colored urine. Also having some right upper and left upper quadrant abdominal pain which has been occasional. He was admitted to [facility]
from 10/03 - 10/08/2024 due to a cough which was found to be due to adenocarcinoma, which was biopsied during his recent admission. He had a previously negative hepatitis panel and TB workup was also negative. He was given IV steroids during his
last hospitalization and placed onto prednisone 60 mg daily with a taper. He also apparently had a PET/CT scan of his body. He has plans to follow-up with [facility] for his lung cancer. He is lost about 20 pounds since July 2024
and has had a dry cough recently. He was recently placed on doxycycline 100 mg twice daily after seeing ENT 4 days ago and diagnosed with a sinus infection. He is managed on Tavalisse for a history of ITP. He currently denies shortness of breath,
nausea, vomiting, diarrhea, sore throat or headache. In the ER he was afebrile, and saturating 99% on room air with BP 141/87 and heart rate 95. Initial labs showed WBC normal at 6.2, Hb 14.2, platelet count 123, AST 36, ALT 1894, and T. bili 7.5.
His lipase was elevated at 819. Urinalysis negative for signs of UTI. His COVID-19 antigen was negative. Abdominal ultrasound showed gallbladder sludge with tiny gallstones with mild intra and extrahepatic biliary dilatation. Subsequent CT
abdomen/pelvis on 10/14/2024 showed bibasilar pneumonia with haziness about the pancreatic head concerning for mild acute pancreatitis, and many small pancreatic cyst. Also moderate intrahepatic biliary dilatation. He had an MRCP on 10/15/2024
showing an obstructive pancreatic head mass measuring 3.3 x 2.3 x 2.1 cm. There was associated biliary and pancreatic ductal dilatation. Also severe bilateral pneumonia with numerous scattered pancreatic cysts likely a combination of sidebranch
intraductal papillary mucinous neoplasms and pseudocyst. Due to his severe bilateral pneumonia, pulmonary service now consulted for additional management/recommendations.
Chronic conditions [employer]: History of right lower lobe adenocarcinoma via biopsy from [facility] (10/06/2024), history of ITP (diagnosed 2021), history of Klebsiella pneumonia seen on sputum culture from 10/03/2024), recurrent pneumonia in
July 2024 + September 2024, history of transaminitis suspected to be from Diflucan with drug-induced liver injury, chronic HFmrEf, history of NICM, GERD, GABRIELA noncompliant with CPAP, anxiety, sinus infection in 10/11/2024
Impression:
#Severe bilateral pneumonia in the setting of recently diagnosed right-sided NSCLC (reportedly diagnosed on 10/06/2024 and [facility] from the right lower lobe - likely pancreatic w/ mets with possible post-obstructive pneumonia)
#Obstructing pancreatic head mass suspicious for pancreatic cancer with associated biliary and pancreatic ductal dilatation
#Leukopenia
#Thrombocytopenia likely due to sepsis from pneumonia
#Hypochloremia
#Transaminitis with hyperbilirubinemia likely due to obstructive pancreatic head mass with suspected pancreatic cancer
#Hypercholesterolemia
#Elevated lipase likely due to pancreatitis
#Recent acute left maxillary sinusitis with green nasal discharge
#History of ITP on Tavalisse
Plan:
- He was recently diagnosed with right lower lobe adenocarcinoma via CT guided lung Bx on 10/06/2024 at [facility], and has a history of recent pneumonia diagnosed on 10/03/2024 with sputum culture growing Klebsiella pneumonia at [facility] --> Per oncology, the
immunostains from pathology at [facility] revealed GI markers, hence making his primary cancer from the pancreas with metastasis to the lung more likely
- He has had a similar distribution of his consolidations since August 2024 per imaging reports from [facility]. Given his admission WBC count was 6.2, I am more inclined to think this malignant spread +/- post-obstructive pneumonia/pneumonitis.
- Would obtain prior imaging from [facility] so that we can compare our imaging to see if this is truly a new process or just his prior pneumonia that has not fully resolved radiographically
- Check procalcitonin
- ID consulted, continue to observe off antibiotics; he is continued on his treatment with Levaquin for his acute bacterial rhinosinusitis which was diagnosed prior to arrival (complete until 10/18)
- Heme/Onc consulted - continue to hold Tavalisse as this can worsen his transaminitis
- He was planning to be evaluated by [facility] next week for treatment option
- He is awaiting EUS with ERCP next week with Dr. Wood for pancreatic biopsy and stent placement
- trend LFTs and T. bili and D. bili
- Continue his prednisone taper that he was on prior to arrival due to GGO seen on imaging (started by Dr. Mayer); monitor blood glucose while on steroids with goal BG >100 and <180
- Trend WBC count and monitor for fevers
- Maintain SpO2 >90-94% with supplemental O2 as needed
- Continue nebulized albuterol BID with prn nebulized bronchodilators for any breakthrough symptoms
- Incentive spirometer encouraged q1hr while awake
- Replete electrolytes with K>4, Mg>2
- Trend H/H and transfuse if needed to keep Hb>7g/dL; keep plt>20k, unless there is concern for bleeding then keep plt>50k
- DVT ppx
Pulmonary service will continue to follow along.
Data:
MRCP 10/15/2024:
1. Obstructing pancreatic head mass in keeping with primary pancreatic neoplasm, measuring approximately 3.3 x 2.3 x 2.1 cm. Associated biliary and pancreatic ductal dilatation. Evaluation for vascular involvement limited without contrast, although
no obvious involvement is appreciated.
2. Numerous scattered pancreatic cystic lesions likely combination of side branch intraductal papillary mucinous neoplasms and pseudocysts.
3. Severe bilateral pneumonia.
4. Gallbladder wall edema/pericholecystic fluid, likely reactive.
CT abdomen/pelvis with IV contrast 10/14/2024:
Findings suggesting significant bibasilar pneumonia.
Haziness about the pancreatic head concerning for mild acute pancreatitis.
Many small pancreatic cysts. Likely benign. Malignancy cannot be excluded. Nonurgent MRI examination recommended when the patient is able if not previously evaluated
Moderate intrahepatic biliary dilatation. Along with the recent ultrasound findings, this may be due to a stone or sludge in the CBD. Findings due to one of the pancreatic masses or a mass not well seen by CT examination cannot be excluded. This
could further be evaluated by MRCP.
Nonobstructing bilateral renal stones.
Bilateral too small to characterize hypodense renal lesions likely benign cysts.
Left adrenal masses noted. These may be a benign or malignant. Nonurgent MRI examination recommended
Moderate fecal material throughout the colon
Diverticulosis
Total time spent today was 57 minutes for this encounter. Time includes reviewing laboratory test/imaging results, reviewing pertinent medical records, obtaining and reviewing medical history, performing an appropriate exam, ordering medications,
tests and procedures. Time also includes documentation of this encounter, coordinating patient care and communicating with other healthcare professionals. Total time does not include separately billed tests performed on this date of service.
--- NOTE | 2024-10-15 14:48 | CON.GS ---
Addendum entered and electronically signed by Bryan White MD 10/15/24 15:34:
I saw and examined the patient.
The Film Booker's note was reviewed and I agree with the note.
Comment: painless jaundice. recent dx of pulmonary adenoCA. reported recent PET scan without intra-abdominal findings. nt/nd on exam, jaundice is noted. LFTs elevated. CT/MRI imaging c/w panc head mass. GI following, plan for EUS/sampling/stenting,
timing TBD. Heme/onc following as well. Discussed with pt, and daughters the [id number] pathway. Unclear why no PET avidity given all other signs point to panc malignancy, PET imaging was done at OSH and not available for review. Will start
LFD, defer to GI when to make him NPO for their procedure. Will follow
Original Note:
Consultation
-
Date/Time Consultation Requested: 10/14/242038
Requesting Provider: Geovanny
Medical History
-
Chief Complaint: jaundice
History of Present Illness:
Mr Eid is a 79 yo male with recent diagnosis of RLL adenocarcinoma after being treated for recurrent PNA at [facility] who was undergoing outpatient oncologic work up with outpatient labs demonstrating significantly abnormal LFT's prompting
recommendation to present through the ED for evaluation. Family notes that he recently had a PET without abdominal abnormalities although this report is not available. He has noted jaundice as well as recent 20lb weight loss. He denies abdominal
pain but does have mild tenderness to the epigastric area. He is hypoxic on exam with a loose cough.
Past Medical History
Past Medical History: Cancer (rx DX of RLL adenocarcinoma undergoing oncologic work up), CHF (HF with nonischemic CM), GERD and Other (ITP (on Tavalisse), anxiety, GABRIELA (not on CPAP), recurrent PNA)
Past Surgical History: Orthopedic (TSA, BL THR)
Social History
Tobacco: Non-Smoker
Alcohol: Occasional
Family History
Family History: Reviewed & Not Pertinent
Allergies / Home Medications
Allergy/AdvReac Type Severity Reaction Status Date / Time
Penicillins Allergy Unknown Verified 10/14/24 13:21
�Medication �Instructions �Recorded �Confirmed �Type
carvedilol 25 mg tablet 25 mg PO BID Blood Pressure 10/14/24 10/15/24 History
fluticasone fur. 100 mcg-umeclid 1 inh inhalation DAILY 10/14/24 10/15/24 History
62.5 mcg-vilant 25 mcg Lung/Breathing Issues
inhalat.powder (Trelegy Ellipta)
fostamatinib 150 mg tablet 150 mg PO BID Tyrosine Kinase 10/14/24 10/15/24 History
(Tavalisse) (Syk) In
latanoprost 0.005 % eye drops 1 drp BOTH EYES DAILY Eye Condition 10/14/24 10/15/24 History
prednisone 10 mg tablet See Taper PO DIRECTED 10/14/24 10/15/24 History
INFLAMMATION
Lactobac no.2-Bifidobac no.1-S. 1 cap PO DAILY 10/15/24 10/15/24 History
thermo 112.5 billion cell capsule
(Visbiome)
doxycycline monohydrate 100 mg 100 mg PO BID 10/15/24 10/15/24 History
capsule
empagliflozin 10 mg tablet 10 mg PO DAILY 10/15/24 10/15/24 History
(Jardiance)
fexofenadine-pseudoephedrine ER 1 tab PO DAILY 10/15/24 10/15/24 History
180 mg-240 mg tablet,ext.release
24 hr (Fifi-D 24 Hour)
guaifenesin 600 mg tablet, 600 mg PO BID 10/15/24 10/15/24 History
extended release 12 hr (Mucinex)
ipratropium 0.5 mg-albuterol 3 mg 3 ml inhalation TID 10/15/24 10/15/24 History
(2.5 mg base)/3 mL nebulization
soln
lorazepam 1 mg tablet 1 mg PO HS 10/15/24 10/15/24 History
omeprazole 40 mg capsule,delayed 40 mg PO DAILY 10/15/24 10/15/24 History
release
sacubitril 97 mg-valsartan 103 mg 1 tab PO BID 10/15/24 10/15/24 History
tablet (Entresto)
sodium chloride 0.65 % nasal spray 1 spray intranasal TID 10/15/24 10/15/24 History
aerosol (Saline Nasal)
spironolactone 25 mg tablet 25 mg PO DAILY 10/15/24 10/15/24 History
Review of Systems
-
History Source: Patient and Family
All other systems: Negative unless noted
A 10 point review of systems was completed, and was negative except as per HPI.
Physical Exam
Vital Signs
Temp Pulse Resp BP Pulse Ox
98.2 F 88 27 134/87 94
10/15/24 11:10 10/15/24 11:00 10/15/24 11:00 10/15/24 10:56 10/15/24 11:00
10/14/24 10/15/24 10/16/24
06:59 06:59 06:59
Actual Weight 100.7 kg
Body Mass Index (BMI) 30.1
Lab Results
10/15/24 05:49
10/15/24 05:49
WBC 4.4 10^3/uL (4.8-10.8) L 10/15/24 05:49
Hgb 13.1 g/dL (13.0-18.0) 10/15/24 05:49
Hct 38.0 % (39.0-52.0) L 10/15/24 05:49
Plt Count 101 10^3/uL (130-400) L 10/15/24 05:49
Abs Immat Gran (auto) 0.1 10^3/uL (0-0.05) H 10/15/24 05:49
Neutrophils % 88.8 % (42.2-75.2) H 10/15/24 05:49
Physical Exam
General: Well Developed and Well Nourished
HEENT: Moist Mucous Membranes
Respiratory: Non Labored Respirations
GI: Soft, Non Distended and Tender (very mild to epigastric area)
Skin: Warm and Jaundice
Neuro: Awake and AO x 3
Psych: Calm
Data Reviewed
-
CT Scan: Image Personally Visualized and interpreted, Report Reviewed by me, Discussed with Physician, Discussed with Nurse, Discussed with Patient and Discussed with Family
MRI: Image Personally Visualized and interpreted, Report Reviewed by me, Discussed with Physician, Discussed with Nurse, Discussed with Patient and Discussed with Family
Labs: Labs Reviewed by me, Discussed with Physician, Discussed with Nurse, Discussed with Patient and Discussed with Family
Old Records: Reviewed
Assessment / Plan
-
79 yo male with recent diagnosis of RLL adenocarcinoma after being treated for recurrent PNA at [facility] who was undergoing outpatient oncologic work up with outpatient labs demonstrating significantly abnormal LFT's prompting recommendation to
present through the ED for evaluation. LFT's elevated with obstructive jaundice secondary to pancreatic head mass with upstream biliary obstruction noted on MRCP today. No leukocytosis or evidence of cholecystitis/cholangitis. Afebrile. Hypoxic to
87% during exam and placed on O2 at 2L with good response.
No plans for emergent surgery at this time
Continued oncologic work up, trend labs
EUS/ERCP planned with Gastroenterology tentatively on Thursday
Discussed with gastroenterology, ok to feed patient from surgical standpoint. Will start low fat diet, NPO after MN on Thursday for testing
Patient's and daughters at bedside, long discussion with them regarding diagnostic work up and plan of care. After this admission, they plan to follow at [facility].
--- NOTE | 2024-10-15 14:51 | CON.ONC ---
Impression
Impression
Adenocarcinoma - RLL lung
pancreatic head mass
obstructive jaundice
ITP
Plan
Plan
1. Adenocarcinoma - RLL lung lesion
-immunostains from pathology [place] revealed CDX2 positivity which is a GI marker
-w/ pancreatic head lesion - raises suspicion for possible primary w/ lung lesion as metastatic focus
2. Elevated LFTs w pancreatic head lesion -
-await further GI w/u - and pathology from EGD/EUS and ERCP
3. ITP - will hold Tavalisse temporarily - as can increase LFTs
-if LFTs improve following procedure - will resume
-follow CBC
Will continue to follow with you.
Patient History
History of Present Illness
79y/o male seen in hematology/ oncology consultation today regarding h/o ITP, as well as recently diagnosed adenocarcinoma, w/ pathologic positive lung lesion, now w/ obstructive jaundice, weight loss, and pancreatic head mass.
The patient presented to Dr. Leyla Walters in August w/lung imaging revealing bilateral infiltrates. Bronchoscopy was performed on 08/30/24 w/ non-diagnostic pathology. F/u PET/CT imaging 09/30/24 revealed numerous bilateral groundglass pulmonar
nodules w/ hypermetabolic uptake. Prior to outpt biopsy, the patient was admitted to [facility] on 10/03/24 w/ SOB/cough. IR guided biopsy of dominant lesion in the RLL was completed on 10/06/24 w/ pathology revealing adenocarcinoma.
Additional immunostains revealed the cells to be positive for CK7 as well as CDX2, a gastrointestinal marker. While some adenocarcinomas of the lung can aberrantly have his marker, differential also includes possible upper GI or pancreaticobiliary
primary.
The patient now presents to the [facility] yesterday w/ elevated LFTs and painless jaundice. Imaging in the ER included a CT chest/ abdomen /pelvis revealing bibasilar pneumonia, haziness about the pancreatic head, small pancreatic cysts,
as well as moderate intrahepatic biliary ductal dilation. MRI of the abdomen was performed today revealing obstructing pancreatic head mass, measuring approximately 3.3 x 2.3 x 2.1 cm. Associated biliary and pancreatic ductal dilatation. Evaluation
for vascular involvement was limited without contrast.
The patient has been seen by GI w/ plans for EGD w/ EUS biopsy and ERCP.
Clinically, the patient denies pain. He denies SOB, chest pain, palpitations, fevers or chills.
Past-Medical/Surgical History
PMH:
ITP - on Tavalisse w/ Dr. Dietz
RLL adenocarcinoma via biopsy 10/06/2024 [facility]
Sputum culture with Klebsiella 10/03/2024 treated with cefepime negative culture by 10/07/2024
Congestive heart failure chronic follows with Dr. Dunn [facility]
Nonischemic cardiomyopathy EF 45-50% 03/10/2022
GERD
GABRIELA noncompliant CPAP
Anxiety
Sinus infection Dx 10/11/2024
PSH:
Bilateral hip replacements-[facility]
Right shoulder replacement
Social History
Tobacco: Non-smoker
Alcohol: Occasional (Patient drinks 1 beer or drink a week denies history of weekly drinking/heavy drinking)
Personal:
Living: With Family ()
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
Family History
Family History: Other (1 daughter history MS Dx age 30 still living, 1 brother age 67 MS, mother breast cancer age 80, father age 82 CHF, 3 daughters history of gallstones)
Allergies: PCN
Patient Medication
�Medication �Instructions �Recorded �Confirmed �Last Taken �Type
carvedilol 25 mg tablet 25 mg PO BID Blood Pressure 10/14/24 10/15/24 Unknown History
fluticasone fur. 100 mcg-umeclid 1 inh inhalation DAILY 10/14/24 10/15/24 Unknown History
62.5 mcg-vilant 25 mcg Lung/Breathing Issues
inhalat.powder (Trelegy Ellipta)
fostamatinib 150 mg tablet 150 mg PO BID Tyrosine Kinase 10/14/24 10/15/24 Unknown History
(Tavalisse) (Syk) In
latanoprost 0.005 % eye drops 1 drp BOTH EYES DAILY Eye Condition 10/14/24 10/15/24 Unknown History
prednisone 10 mg tablet See Taper PO DIRECTED 10/14/24 10/15/24 10/14/24 History
INFLAMMATION 50 mg
Lactobac no.2-Bifidobac no.1-S. 1 cap PO DAILY 10/15/24 10/15/24 Unknown History
thermo 112.5 billion cell capsule
(Visbiome)
doxycycline monohydrate 100 mg 100 mg PO BID 10/15/24 10/15/24 Unknown History
capsule
empagliflozin 10 mg tablet 10 mg PO DAILY 10/15/24 10/15/24 Unknown History
(Jardiance)
fexofenadine-pseudoephedrine ER 1 tab PO DAILY 10/15/24 10/15/24 Unknown History
180 mg-240 mg tablet,ext.release
24 hr (Fifi-D 24 Hour)
guaifenesin 600 mg tablet, 600 mg PO BID 10/15/24 10/15/24 Unknown History
extended release 12 hr (Mucinex)
ipratropium 0.5 mg-albuterol 3 mg 3 ml inhalation TID 10/15/24 10/15/24 Unknown History
(2.5 mg base)/3 mL nebulization
soln
lorazepam 1 mg tablet 1 mg PO HS 10/15/24 10/15/24 Unknown History
omeprazole 40 mg capsule,delayed 40 mg PO DAILY 10/15/24 10/15/24 Unknown History
release
sacubitril 97 mg-valsartan 103 mg 1 tab PO BID 10/15/24 10/15/24 Unknown History
tablet (Entresto)
sodium chloride 0.65 % nasal spray 1 spray intranasal TID 10/15/24 10/15/24 Unknown History
aerosol (Saline Nasal)
spironolactone 25 mg tablet 25 mg PO DAILY 10/15/24 10/15/24 Unknown History
Active Medications
Generic Name Dose Route Start Last Admin
Trade Name Freq PRN Reason Stop Dose Admin
Albuterol Sulfate 2.5 mg 10/15/24 08:00 10/15/24 08:32
Albuterol Nebs 2.5 Mg/3 Ml Ampul INH 2.5 mg
R BID DEVAUGHN Administration
Budesonide/Formoterol Fumarate 2 puff 10/15/24 08:00 10/15/24 08:30
Symbicort Inhaler 80/4.5 INH 11/12/24 07:59 2 puff
R BID DEVAUGHN Administration
Protocol
Carvedilol 25 mg 10/15/24 08:00 10/15/24 11:02
Carvedilol 25 Mg Tablet PO 11/12/24 07:59 25 mg
BID DEVAUGHN Administration
Enoxaparin Sodium 40 mg 10/15/24 18:00
Enoxaparin Sodium 40 Mg/0.4 Ml Syringe SC 11/12/24 17:59
QPM DEVAUGHN
Hydromorphone HCl 0.5 mg 10/15/24 00:39
Hydromorphone 0.5 Mg/0.5 Ml Syringe IV 10/29/24 00:38
Q4HPRN PRN
mod pain
Hydromorphone HCl 1 mg 10/15/24 00:39
Hydromorphone 1 Mg/Ml Carpuject IV 10/29/24 00:38
Q4HPRN PRN
severe pain
Levofloxacin/Dextrose 500 mg in 100 mls @ 100 mls/hr 10/15/24 00:00 10/14/24 23:52
Levaquin IV 100 mls
Q24H DEVAUGHN Administration
Lactated Ringer's 1,000 mls @ 100 mls/hr 10/14/24 23:45 10/15/24 11:01
Lr IV 10/15/24 19:44 1,000 mls
.Q10H DEVAUGHN Administration
Latanoprost 1 drop 10/15/24 08:00 10/15/24 11:02
Latanoprost 0.005% (Ophthalmic Solution) 2.5 Ml Bottle BOTH EYES 11/12/24 07:59 1 drop
DAILY DEVAUGHN Administration
Lorazepam 0.5 mg 10/15/24 22:00
Lorazepam 0.5 Mg Tablet PO 11/12/24 21:59
HS DEVAUGHN
Non-Formulary Medication 1 tablet 10/15/24 08:00
Fifi-D 24 Hour PO 11/12/24 07:59
DAILY DEVAUGHN
Non-Formulary Medication 2 spray 10/15/24 00:39
Ipratropium [place] NASAL
DAILY PRN
Congestion
Non-Formulary Medication 3.5 % 10/15/24 08:00
Hyper-Shaun INH 11/12/24 07:59
BID DEVAUGHN
Ondansetron HCl 4 mg 10/15/24 00:39 10/15/24 00:44
Ondansetron 4 Mg/2 Ml Vial IV 11/12/24 00:38 4 mg
Q6HPRN PRN Administration
nausea and vomiting
Pantoprazole Sodium 40 mg 10/15/24 08:00 10/15/24 09:35
Pantoprazole Sodium 40 Mg/10 Ml Vial IV 11/12/24 07:59 40 mg
DAILY DEVAUGHN Administration
Prednisone 50 mg 10/15/24 08:00 10/15/24 09:34
Prednisone 50 Mg Tablet PO 10/20/24 07:59 50 mg
DAILY DEVAUGHN Administration
Prednisone 40 mg 10/20/24 08:00
Prednisone 20 Mg Tablet PO 10/25/24 07:59
DAILY DEVAUGHN
Prednisone 30 mg 10/25/24 08:00
Prednisone 10 Mg Tablet PO 10/30/24 07:59
DAILY DEVAUGHN
Prednisone 20 mg 10/30/24 08:00
Prednisone 20 Mg Tablet PO 11/04/24 07:59
DAILY DEVAUGHN
Prednisone 10 mg 11/04/24 08:00
Prednisone 10 Mg Tablet PO 11/09/24 07:59
DAILY DEVAUGHN
Sodium Chloride 0 flush 10/14/24 23:00
Sodium Chloride 0.9% (Flush) Syringe IV 11/11/24 22:59
PER PROTOCOL DEVAUGHN
Sodium Chloride 0 flush 10/15/24 03:00
Sodium Chloride 0.9% (Flush) Syringe IV 11/12/24 02:59
PER PROTOCOL DEVAUGHN
Sodium Chloride 10 ml 10/15/24 08:00 10/15/24 09:35
Sodium Chloride 0.9% (Preservative Free) 10 Ml Vial IV 11/12/24 07:59 10 ml
DAILY DEVAUGHN Administration
Tiotropium [place] 2 puff 10/15/24 08:00 10/15/24 08:31
Tiotropium (Spiriva Respimat) 2.5 Mcg Inhaler INH 11/12/24 07:59 2 puff
R DAILY DEVAUGHN Administration
Protocol
Review of Systems
-
A ROS was performed w/ pertinent findings as per HPI.
Physical Exam
-
General: Well Developed and No Apparent Distress
HEENT: Jaundice
Cardiology: Normal Sinus Rhythm
Pulmonary: Clear
Neurology: Non Focal
Labs
Lab Results
WBC 4.4 10^3/uL (4.8-10.8) L 10/15/24 05:49
RBC 4.18 10^6/uL (4.70-6.10) L 10/15/24 05:49
Hgb 13.1 g/dL (13.0-18.0) 10/15/24 05:49
Hct 38.0 % (39.0-52.0) L 10/15/24 05:49
MCV 90.9 fL (80.0-94.0) 10/15/24 05:49
MCH 31.3 pg (27.0-31.0) H 10/15/24 05:49
MCHC 34.5 g/dL (33.0-37.0) 10/15/24 05:49
RDW 13.7 % (11.5-14.5) 10/15/24 05:49
Plt Count 101 10^3/uL (130-400) L 10/15/24 05:49
MPV 12.1 fL (7.4-10.4) H 10/15/24 05:49
Abs Immat Gran (auto) 0.1 10^3/uL (0-0.05) H 10/15/24 05:49
Absolute Neuts (auto) 3.9 10^3/uL (1.4-6.5) 10/15/24 05:49
Absolute Lymphs (auto) 0.3 10^3/uL (1.2-3.4) L 10/15/24 05:49
Absolute Monos (auto) 0.1 10^3/uL (0.1-0.6) 10/15/24 05:49
Absolute Eos (auto) 0.0 10^3/uL (0-0.7) 10/15/24 05:49
Absolute Basos (auto) 0.0 10^3/uL (0-0.2) 10/15/24 05:49
Immature Gran % 1.1 % (0-0.5) H 10/15/24 05:49
Neutrophils % 88.8 % (42.2-75.2) H 10/15/24 05:49
Lymphocytes % 7.4 % (20.5-51.1) L 10/15/24 05:49
Monocytes % 2.7 % (1.7-9.3) 10/15/24 05:49
Eosinophils % 0.0 % (0-6) 10/15/24 05:49
Basophils % 0.0 % (0-2) 10/15/24 05:49
Creatinine 0.6 mg/dL (0.7-1.3) L 10/15/24 05:49
Vital Signs
Vital Signs
Temp Pulse Resp BP Pulse Ox
98.2 F 88 27 134/87 94
10/15/24 11:10 10/15/24 11:00 10/15/24 11:00 10/15/24 10:56 10/15/24 11:00
--- NOTE | 2024-10-15 15:56 | CON.ID ---
Consultation
-
Date/Time Consultation Requested: October 15, 2024 1240
Date/Time Consultation Performed: October 15, 2024 1600
Requesting Provider: Dr. Collin Garcia
Performing Provider: Dr. Estella Canada
Reason for Consultation: Persistent pneumonia
Chief Complaint / Past History
Chief Complaint
Skin turned yellow
History of Present Illness
History obtained from review of records, from the patient and from his daughter at bedside. He is a 79-year-old male with history of ITP, nonischemic cardiomyopathy, obstructive sleep apnea intolerable to CPAP who presented to the hospital September
due to painless jaundice and elevated LFTs. He started having dry cough July 2024. He was treated with a course of antibiotic without improvement. Cough persisted. + 20 pound weight loss. No SOB. No fevers. CT scan showed bilateral
opacities. He was referred to pulmonary and had workup done including sputum AFB negative, culture respiratory everett and Camila albicans, negative Aspergillus galactomannan assay. By report he had bronchoscopy which was not diagnostic. September 30
PET scan + hypermetabolic ground glass pulmonary nodules. He presented to [facility] October 03 with worsening dry cough. Sputum positive for Klebsiella treated with IV cefepime. Repeat sputum culture was negative on October 07. He
finally underwent lung biopsy which resulted as adenocarcinoma. Antibiotic discontinued. He was placed on steroid for the lung cancer with significant improvement of his cough. Of note patient also had elevated transaminitis thought to be due to
the fluconazole. I am unclear why he was on fluconazole but presumably for the Camila albicans recovered from previous sputum. He was discharged on October 08 on the prednisone. However at home he noted that his urine was tea colored, the whites
of his eyes turned yellow. Outpatient lab showed increasing transaminases. He was therefore instructed to come to the ER. Bilirubin 7.4, AST 836, ALT of 1894, lipase 1050. CT of the abdomen and pelvis moderate intrahepatic biliary dilatation,
mild haziness about the pancreatic head, left adrenal nodules, severe airspace disease in right lower lobe, moderate airspace disease right middle lobe and left lower lobe. Patient was started on IV levofloxacin. Today he had MRCP which showed a
obstructing pancreatic head mass. Infectious disease has been consulted for the persistent lung opacities. Today the patient again reports that his cough has improved since being on the steroid. He still has the cough but not as much as before.
No shortness of breath. He has history of sinusitis and recently saw ENT for exacerbation. He was having green drainage. ENT started him on doxycycline which he took 1 days worth prior to admission here. He is still having left sided sinus
pressure. No fevers. He denies abdominal pain. No nausea vomiting or diarrhea. He has an appointment with at [facility] on October 18 regarding the recent cancer diagnosis. GI is planning for EUS/ERCP stent placement on October 17.
Past History
Additional Past Medical History:
Recent diagnosis of lung adenocarcinoma by biopsy October 06, 2024 at [facility]
ITP
Nonischemic cardiomyopathy EF 45 to 50%
GABRIELA,, not on CPAP
GERD
anxiety
bilateral THR
right shoulder replacment
Allergy History:
Penicillins Allergy (Verified 10/14/24 13:21)
Unknown
Medications Reviewed: Yes
Current Antibiotics:
Levofloxacin IV
Social History
Tobacco: Non-Smoker
Alcohol: Occasional
Drug: None
Personal:
Living: With Family
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
Family History
Family History: Not Pertinent
Review of Systems
Review of Systems
General: Chills; Negative Fever or Change in Appetite
HEENT: Sinus Problems; Negative Headache or Pharyngitis
Cardiovascular: Negative Chest Pain
Respiratory: Negative Dyspnea
Gasteroenterology: Weight Loss; Negative Nausea, Vomiting or Diarrhea
Genital / Urological: Negative Dysuria or Flank Pain
Endocrine: Negative Weakness
Neurological: Negative Dizziness
All systems: All other systems were reviewed and were negative
Vital Signs
Temp Pulse Resp BP Pulse Ox
98.2 F 88 27 134/87 94
10/15/24 11:10 10/15/24 11:00 10/15/24 11:00 10/15/24 10:56 10/15/24 11:00
Physical Exam
Physical Exam
Constitutional: No Acute Distress and Comfortable
Head: Other (Positive left maxillary sinus tenderness)
Eyes: No Conjunctival Hemorrhage and Other (sclera icteric)
Oral: No Thrush
Cardiovascular: Regular Rate and S1/S2
Pulmonary: Rhonchi (throughout) and Coarse (throughout)
Gastrointestinal: Soft, Non Tender, Non Distended and Normal Bowel Sounds
Genito-Urinary: Negative CVA Tenderness
Extremities: Negative Edema
Skin: Jaundice
Neurological: AO x 3; Negative Meningeal Signs
Lab / Diagnostic Study Results
10/15/24 05:49
10/15/24 05:49
Abs Immat Gran (auto) 0.1 10^3/uL (0-0.05) H 10/15/24 05:49
Absolute Neuts (auto) 3.9 10^3/uL (1.4-6.5) 10/15/24 05:49
Absolute Lymphs (auto) 0.3 10^3/uL (1.2-3.4) L 10/15/24 05:49
Absolute Monos (auto) 0.1 10^3/uL (0.1-0.6) 10/15/24 05:49
Absolute Basos (auto) 0.0 10^3/uL (0-0.2) 10/15/24 05:49
Immature Gran % 1.1 % (0-0.5) H 10/15/24 05:49
Neutrophils % 88.8 % (42.2-75.2) H 10/15/24 05:49
Lymphocytes % 7.4 % (20.5-51.1) L 10/15/24 05:49
Monocytes % 2.7 % (1.7-9.3) 10/15/24 05:49
Eosinophils % 0.0 % (0-6) 10/15/24 05:49
Basophils % 0.0 % (0-2) 10/15/24 05:49
PT 13.5 Sec (11.4-14.6) 10/15/24 05:49
INR 1.00 10/15/24 05:49
Lactic Acid 1.6 mmol/L (0.7-2.0) 10/14/24 13:36
Microbiology Results
Micro:
10/14/24 13:36 Influenza Types A & B (GEORGE) - Final
Nasal Swab Negative for Influenza A & B, NAAT
Negative results must be combined with clinical observations
and patient history.
Nucleic Acid Amplification test (NAAT)performed on the
[employer] platform.
10/14/24 Abd US: Gallbladder sludge and probable tiny gallstones. Mild intra and extrahepatic biliary dilatation. These findings can be seen with acute cholecystitis.
10/14/24 CT a/p: Findings suggesting significant bibasilar pneumonia. See above. Haziness about the pancreatic head concerning for mild acute pancreatitis. Many small pancreatic cysts. Likely benign. Malignancy cannot be excluded. Nonurgent MRI
examination recommended when the patient is able if not previously evaluated. Moderate intrahepatic biliary dilatation. Along with the recent ultrasound findings, this may be due to a stone or sludge in the CBD. Findings due to one of the pancreatic
masses or a mass not well seen by CT examination cannot be excluded. This could further be evaluated by MRCP.
10/15/24 MRCP: Obstructing pancreatic head mass in keeping with primary pancreatic neoplasm, measuring approximately 3.3 x 2.3 x 2.1 cm. Associated biliary and pancreatic ductal dilatation. Evaluation for vascular involvement limited without
contrast, although no obvious involvement is appreciated. Numerous scattered pancreatic cystic lesions likely combination of side branch intraductal papillary mucinous neoplasms and pseudocysts. Severe bilateral pneumonia. Gallbladder wall
edema/pericholecystic fluid, likely reactive.
Assessment / Plan
# Lung nodules with recent RLL bx + adenocarcinoma (10/06/24), + GI marker concerning lung mets from GI source, per Onc.
# Obstructing pancreatic head mass concerning for primary malignancy.
-For EUS/ERCP biopsy, stent placement on 10/17
# Persistent/worsening dry cough since 07/2024 without response to abx's
- Cough due to cancer and unlikely PNA. Cough responding to steroid.
- The abnormal lung opacities are due to malignancy rather than pneumonia.
- Observe off abx.
# Acute left maxillary sinusitis with green nasal drainage.
- Can treat with levofloxacin 750mg po daily x 5 days till 10/18.
[2024-10-15] MEDS: LOVENOX 40 MG SC (18:19)
[2024-10-15] MEDS: LEVAQUIN 750 MG PO (18:19)
[2024-10-16 03:15] VITALS: BP 152/96
[2024-10-16 06:00] VITALS: BMI 28.8
--- NOTE | 2024-10-16 06:22 | W.PN.GI.CBS2 ---
Today's Communication / Plan
-
Plan for tentative EUS/ERCP tomorrow, 10/17/2024, with Dr. Wood. Keep NPO at SD. Discussed with patient's again this AM. See rest of care as outlined below.
Assessment / Plan
-
#Pancreatic Head Mass c/f #Pancreatic Malignancy c/b
#Biliary Obstruction
#Elevated LFTs
#Painless Jaundice
#Unintentional Weight Loss
#Hx of RLL Lung Adeno (CDX2 positivity, c/ metasatic lesion)
#Hx of ITP
This is a 79-year-old male with past medical history of HFmrEF, ITP (on Tavalisse), and recent hospitalization at [facility] for pneumonia (10/03 - 10/08/24) and recent diagnosis of RLL lung adenocarcinoma (bx 10/06/2024 at [facility]) who presented
to the hospital with elevated LFTs on outpatient labs and painless jaundice along with a 20 pound unintentional weight loss. Initially, there was concern for potential choledocholithiasis given biliary ductal dilatation seen on both US and CT
Abd/pelvis revealing moderate intrahepatic and extrahepatic biliary ductal dilatation. There was mild haziness around the pancreatic head concerning for possible pancreatitis as well given his elevated lipase. An MRI/MRCP 10/15/2024 revealed an
obstructing pancreatic head mass in keeping with primary pancreatic neoplasm measuring approximately 3.3 x 2.3 x 2.1 cm with upstream biliary ductal dilatation as well as pancreatic ductal dilatation up to 1.1 cm. Imaging was limited for vascular
involvement however there was additional numerous scattered PCLs suspicious for sidebranch IPMN's and pseudocysts. He denies any prior history of pancreatitis. Of note, prior US (at [facility]) was performed for his elevated LFTs on 10/03/2024 which
revealed a dilated CBD up to 9.5 mm along with a 2.1 cm cystic lesion within the pancreas. Additionally, an OSH PET Scan 09/30/2024 was negative for any abdominal process. Regardless, suspect his elevated LFTs in setting of obstructive jaundice
secondary to his pancreatic head mass with upstream biliary obstruction/dilatation. Suspicious for primary pancreatic cancer given MRCP findings. Otherwise, he is without any signs or symptoms to suggest cholangitis. He did receive prior
antibiotics as well along with fluconazole at his OSH and may be a component of underlying DILI contributing, but less likely. Prior hepatitis serologies (-). However, given his obstruction secondary to his pancreatic mass would defer any chronic
serologic w/u of liver disease at this time. He would benefit from an expedited EUS/ERCP this admission with Dr. Wood on 10/17/2024.
Upon review of records per Oncology, immunostains from pathology at [facility] revealed CDX2 positivity which is a GI marker, concerning for primary pancreatic with lung lesion as a metastatic focus
Recommendations:
- Diet as tolerated, keep NPO at MN
- Trend LFTs and T Bili q daily
- Synthetic function remains intact given nml INR
- Tavalisse now on hold given elevated LFTs as per Oncology
- Defer further serologic w/u at this time pending biliary decompression to assess response. Prior hepatitis serologies (-)
- Will need an EUS w/ FNA and ERCP w/ stent placement given pancreatic head mass with biliary obstruction
- Plan for both EUS/ERCP tentatively tomorrow, 10/17/24. Ultimate timing to be discussed with Dr. Wood
- No concern for cholangitis or biliary sepsis at this time
- Appreciate residential property consultant recommendations, ID, Pulmonary and ID following
- Pain control and IV anti-emetics PRN
- Rest of care per primary team
Discussed with patient's again this AM along with primary internal medicine team. GI will continue to follow.
Subjective
Subjective
Date of Service: October 16, 2024
- Upon review of records per Oncology, immunostains from pathology at [facility] revealed CDX2 positivity which is a GI marker, concerning for primary pancreatic with lung lesion as a metastatic focus
- Remains afebrile, otherwise no acute events overnight
Resting comfortable this morning, although somewhat frustrated as didn't get much sleep overnight. Otherwise, no other abdominal pain/discomfort or nausea/vomiting. Denies any fevers/chills or other constitutional symptoms.
Objective
Data Reviewed
Laboratory Data:
Laboratory Results
PT 13.5 Sec (11.4-14.6) 10/15/24 05:49
INR 1.00 10/15/24 05:49
Total Bilirubin 7.4 mg/dl (0.2-1.3) H 10/15/24 05:49
AST 754 U/L (17-59) H* 10/15/24 05:49
ALT 1761 U/L (0-50) H* 10/15/24 05:49
Alkaline Phosphatase 265 U/L (38-126) H 10/15/24 05:49
Lipase 1050 U/L (23-300) H* 10/15/24 05:49
Vital Signs and I&O:
Vital Signs
Temp Pulse Resp BP Pulse Ox
97.7 F 90 20 152/96 93
10/16/24 03:15 10/16/24 03:15 10/16/24 03:15 10/16/24 03:15 10/16/24 03:15
I&O
10/14/24 10/15/24 10/16/24
06:59 06:59 06:59
Intake Total 600 / 600 1959
Output Total 800 / 800
Balance -200 / -200 1959
Physical Exam
Physical Exam
HEENT: Moist mucous membranes and Other (Scleral icterus)
Pulmonary: Other (Normal WOB on room air)
GI: Soft, Non Distended and Non Tender
Neuro: Non Focal
[2024-10-16 06:41] LABS: % Immature Granulocytes 0.6 % (0-0.5); % Lymphocytes 10.5 % (20.5-51.1); % Monocytes 3.3 % (1.7-9.3); % Neutrophils 85.6 % (42.2-75.2); Absolute Lymphocytes 0.5 10^3/uL (1.2-3.4); Absolute Monocytes 0.2 10^3/uL (0.1-0.6); Absolute Neutrophils 4.1 10^3/uL (1.4-6.5); Hematocrit 38.6 % (39.0-52.0); Hemoglobin 13.6 g/dL (13.0-18.0); Mean Corp Hgb Conc. 35.2 g/dL (33.0-37.0); Mean Corpuscular Hgb 31.7 pg (27.0-31.0); Mean Platelet Volume 11.1 fL (7.4-10.4); Platelet Count 97 10^3/uL (130-400); Red Blood Cell Count 4.29 10^6/uL (4.70-6.10); Red Cell Dist. Width 13.8 % (11.5-14.5); White Blood Cell Count 4.8 10^3/uL (4.8-10.8)
[2024-10-16 07:05] LABS: Procalcitonin 0.06 ng/ml (0.0-0.25)
[2024-10-16 07:31] LABS: ALT (SGPT) 1840 U/L (0-50); AST (SGOT) 845 U/L (17-59); Albumin 3.1 g/dl (3.5-5.0); Alkaline Phosphatase 288 U/L (38-126); Blood Urea Nitrogen 21 mg/dl (9-20); Calcium 8.7 mg/dl (8.4-10.2); Carbon Dioxide 31 mmol/L (22-30); Chloride 101 mmol/L (98-107); Estimated Creatinine Clearance 116 ml/min; Glucose 107 mg/dl (70-99); Potassium 3.3 mmol/L (3.5-5.1); Sodium 137 mmol/L (135-145); Total Bilirubin 7.8 mg/dl (0.2-1.3); Total Protein 5.5 g/dl (6.3-8.2); eGFR > 60.00
--- NOTE | 2024-10-16 07:40 | W.PN.HOSP.TC ---
Today's Communication/Plan
-
see bold
Assessment / Plan
Assessment / Plan
Gen: NAD, AAOx3, appears chronically ill.
Eyes: EOMI, PERRLA, mild scleral icterus.
Neck: supple.
CV: remains RRR, +S1/S2, no m/r/g.
Resp: remains CTAB, no rales, wheezes, or rhonchi.
Abd: +BS, soft, NT, ND
Skin: No rashes. + jaundice
Neuro: CN 2-12 intact, non-focal.
Psych: Normal mood and affect.
CT A/P w/IV: Findings suggesting significant bibasilar pneumonia. Haziness about the pancreatic head concerning for mild acute pancreatitis. Many small pancreatic cysts. Likely benign. Malignancy cannot be excluded. Nonurgent MRI examination
recommended when the patient is able if not previously evaluated. Moderate intrahepatic biliary dilatation. Along with the recent ultrasound findings, this may be due to a stone or sludge in the CBD. Findings due to one of the pancreatic masses or a
mass not well seen by CT examination cannot be excluded. This could further be evaluated by MRCP. Nonobstructing bilateral renal stones. Bilateral too small to characterize hypodense renal lesions likely benign cysts. Left adrenal masses noted.
These may be a benign or malignant. Nonurgent MRI examination recommended. Moderate fecal material throughout the colon. Diverticulosis.
Abd U/S: Gallbladder sludge and probable tiny gallstones. Mild intra and extrahepatic biliary dilatation. These findings can be seen with acute cholecystitis. Clinical and laboratory correlation recommended. Hepatic fatty infiltration. Simple
bilateral renal cysts. Nonvisualization of the pancreas and proximal IVC and abdominal aorta due to overlying bowel gas.
MRCP:
1. Obstructing pancreatic head mass in keeping with primary pancreatic neoplasm, measuring approximately 3.3 x 2.3 x 2.1 cm. Associated biliary and pancreatic ductal dilatation. Evaluation for vascular involvement limited without contrast, although
no obvious involvement is appreciated.
2. Numerous scattered pancreatic cystic lesions likely combination of side branch intraductal papillary mucinous neoplasms and pseudocysts.
3. Severe bilateral pneumonia.
4. Gallbladder wall edema/pericholecystic fluid, likely reactive.
Acute pancreatitis due to obstructing pancreatic head mass:
-likely malignancy based on imaging above
-new left adrenal mass
-s/p IVFs
-low fat diet until midnight
-discussed with GI, EUS/ERCP on 10/17/24
-Dilaudid/Zofran PRN
-ONC to see
-trend LFTs although clearly they will not improve without relief of obstruction
Bibasilar PNA:
-cont Levaquin
-Persistent Pneumonia treated July 2024 and 10/03/2024 at [facility]
-had outpatient sputum cultures that were positive for Klebsiella he was started on IV cefepime per ID in the hospital on 10/03/2024 sputum cultures were negative by discharge on 10/07/2024 per report.
-Patient started steroids inpatient 10/03/2024 transition to 60 mg x 5 days to start 50 mg x 5 days tomorrow 10/15/2024 to taper by 10 mg every 5 days until finished (when patient tapers off of steroids he has a persistent cough per daughter)
-PET scan from 09/30/2024 reports shows numerous bilateral pulmonary nodules with surrounding groundglass attenuation and hypermetabolic activity NO other active areas throughout the chest abdomen and pelvis
-appreciate pulm and ID, 5 days Levaquin
Other problems:
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 Note, stains revealed CDX2 positivity which is a GI marker. Likely that primary tumor is pancreatic mass.
h/o ITP: Dx 2021, cont Tavalisse
Chronic HFmrEF: Holding Entresto/Jardiance. Cont BB. Daily wts, I/Os.
GERD: cont PPI
GABRIELA, intolerant CPAP
Obesity due to excess calories
FULL/Lovenox
Total time spent on today's encounter was 52 minutes which included time spent in counseling the patient/family regarding diagnosis and treatment plan as listed above, goals of care, and symptom management. Case was discussed with nursing staff,
specialists, and care coordinators/case management. All labs and imaging personally reviewed by me. Remainder the time spent in detailed review of previous records, lab data, imaging, and other medical provider documentation.
Anticipated Discharge: 24 - 48 hours
Subjective/Interval History
-
Date of Service: October 16, 2024
No new complaints.
Objective Data
-
Labs:
Laboratory Results
10/16/24
06:26
WBC 4.8
Hgb 13.6
Hct 38.6 L
Plt Count 97 L
Sodium 137
Potassium 3.3 L
Chloride 101
Carbon Dioxide 31 H
BUN 21 H
Creatinine 0.6 L
Glucose 107 H
Calcium 8.7
Total Bilirubin 7.8 H
AST 845 H*
ALT 1840 H*
Alkaline Phosphatase 288 H
Vital Signs:
Vital Signs
Temp Pulse Resp BP Pulse Ox
97.7 F 90 20 152/96 93
10/16/24 03:15 10/16/24 03:15 10/16/24 03:15 10/16/24 03:15 10/16/24 03:15
I&O
10/15/24 10/16/24 10/17/24
06:59 06:59 06:59
Intake Total 600 / 600 1959
Output Total 800 / 800
Balance -200 / -200 1959
[2024-10-16] MEDS: SYMBICORT 80/4.5 MCG INHALER 2 PUFF INH ×2 (08:07→19:41)
[2024-10-16] MEDS: SPIRIVA RESPIMAT 2.5 MCG 2 PUFF INH (08:07)
[2024-10-16] MEDS: VENTOLIN NEBULES 2.5 MG INH ×3 (08:07→19:41)
[2024-10-16 08:47] VITALS: BP 131/84
[2024-10-16] MEDS: COREG 25 MG PO ×2 (08:50→21:20)
[2024-10-16] MEDS: NSS (PRESERVATIVE FREE) 10 ML IV (08:50)
[2024-10-16] MEDS: LEVAQUIN 750 MG PO (08:50)
[2024-10-16] MEDS: DELTASONE 50 MG PO (08:50)
[2024-10-16] MEDS: PROTONIX IV 40 MG IV (08:50)
[2024-10-16] MEDS: XALATAN OPHTHALMIC SOLUTION 1 DROP BOTH EYES (08:51)
[2024-10-16 09:27] LABS: Magnesium 1.9 mg/dl (1.6-2.3)
--- NOTE | 2024-10-16 09:28 | W.PN.ID1 ---
Date of Service
Date of Service: October 16, 2024
Today's Communication
Continue levofloxacin 750mg po daily x 7 days till 10/20 for sinusitis.
Assessment / Plan
# Acute left maxillary sinusitis with green nasal drainage, improving.
- Continue levofloxacin 750mg po daily x 7 days till 10/20.
# Lung nodules with recent RLL bx + adenocarcinoma (10/06/24), + GI marker concerning lung mets from GI source, per Onc.
# Obstructing pancreatic head mass concerning for primary malignancy.
-For EUS/ERCP biopsy, stent placement on 10/17
# Persistent/worsening dry cough since 07/2024 without response to abx's
- Chronic cough and persistent abnormal lung opacities are due to malignancy/mets rather than pneumonia as supported by negative procalcitonin (ordered by [facility]).
-Cough responding to steroid.
- Observe off abx.
Chief Complaint
-: Other (Sinusitis)
Subjective / Review of Systems
Sinus with less purulent drainage. Still with mild frontal and left maxillary sinus pressure.
Cough stable.
Vital Signs / Physical Exam
Vital Signs
Vital Signs
Temp Pulse Resp BP Pulse Ox
98.1 F 90 18 131/84 90
10/16/24 08:47 10/16/24 08:47 10/16/24 08:47 10/16/24 08:47 10/16/24 08:47
Physical Exam
Constitutional: No Acute Distress and Comfortable
Head: Other (mild left maxillary tenderness)
Eyes: Sclera Anicteric
Cardiovascular: Regular Rate
Pulmonary: Rhonchi and Coarse
Gastrointestinal: Soft, Non Tender and Non Distended
Genito-Urinary: Negative CVA Tenderness
Skin: Jaundice
Neurological: AO x 3
Objective Data
Lab Data
Lab Results
10/16/24 06:26
10/16/24 06:26
PT 13.5 Sec (11.4-14.6) 10/15/24 05:49
INR 1.00 10/15/24 05:49
Estimated Creat Clear 116 ml/min 10/16/24 06:26
Lactic Acid 1.6 mmol/L (0.7-2.0) 10/14/24 13:36
Total Bilirubin 7.8 mg/dl (0.2-1.3) H 10/16/24 06:26
AST 845 U/L (17-59) H* 10/16/24 06:26
ALT 1840 U/L (0-50) H* 10/16/24 06:26
Alkaline Phosphatase 288 U/L (38-126) H 10/16/24 06:26
Most recent labs reviewed.
Micro Results:
10/14/24 13:36 Influenza Types A & B (GEORGE) - Final
Nasal Swab Negative for Influenza A & B, NAAT
Negative results must be combined with clinical observations
and patient history.
Nucleic Acid Amplification test (NAAT)performed on the
[employer] platform.
10/14/24 Abd US: Gallbladder sludge and probable tiny gallstones. Mild intra and extrahepatic biliary dilatation. These findings can be seen with acute cholecystitis.
10/14/24 CT a/p: Findings suggesting significant bibasilar pneumonia. See above. Haziness about the pancreatic head concerning for mild acute pancreatitis. Many small pancreatic cysts. Likely benign. Malignancy cannot be excluded. Nonurgent MRI
examination recommended when the patient is able if not previously evaluated. Moderate intrahepatic biliary dilatation. Along with the recent ultrasound findings, this may be due to a stone or sludge in the CBD. Findings due to one of the pancreatic
masses or a mass not well seen by CT examination cannot be excluded. This could further be evaluated by MRCP.
10/15/24 MRCP: Obstructing pancreatic head mass in keeping with primary pancreatic neoplasm, measuring approximately 3.3 x 2.3 x 2.1 cm. Associated biliary and pancreatic ductal dilatation. Evaluation for vascular involvement limited without
contrast, although no obvious involvement is appreciated. Numerous scattered pancreatic cystic lesions likely combination of side branch intraductal papillary mucinous neoplasms and pseudocysts. Severe bilateral pneumonia. Gallbladder wall
edema/pericholecystic fluid, likely reactive.
[2024-10-16] MEDS: KCL 40 MEQ PO (09:30)
--- NOTE | 2024-10-16 09:58 | W.PN.PUL3 ---
Today's Communication / Plan
-
EUS with ERCP tomorrow for possible biopsy +/- stent tomorrow
Trend LFTs
Observe off antibiotics
Monitor for fevers
Symbicort + Spiriva with nebulized albuterol
Prednisone taper that he was on MANAGER POLICY
Continue Levaquin for ABRS that he was being treated for MANAGER POLICY
brought in outside facility PET/CT scan, and we should give this to radiology department for them to upload to [email or web address] so that all providers can see this study
Up OOB as tolerated
Encourage incentive spirometer use
Recommend outpatient follow-up with his [employer], Dr. Mayer, after discharge
Pulmonary service will continue to follow along while hospitalized
Assessment
-
Assessment: 79-year-old male with a past medical history of right-sided lung cancer via biopsy at [facility] on 10/06/2024, history of ITP (diagnosed 2021), history of Klebsiella pneumonia seen on sputum culture from 10/03/2024, recurrent
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 He has
reported that over the last 4 days he has been jaundiced with swelling to his face and dark mary-colored urine. Also having some right upper and left upper quadrant abdominal pain which has been occasional. He was admitted to [facility]
from 10/03 - 10/08/2024 due to a cough which was found to be due to adenocarcinoma, which was biopsied during his recent admission. He had a previously negative hepatitis panel and TB workup was also negative. He was given IV steroids during his
last hospitalization and placed onto prednisone 60 mg daily with a taper. He also apparently had a PET/CT scan of his body. He has plans to follow-up with [facility] for his lung cancer. He is lost about 20 pounds since July 2024
and has had a dry cough recently. He was recently placed on doxycycline 100 mg twice daily after seeing ENT 4 days ago and diagnosed with a sinus infection. He is managed on Tavalisse for a history of ITP. He currently denies shortness of breath,
nausea, vomiting, diarrhea, sore throat or headache. In the ER he was afebrile, and saturating 99% on room air with BP 141/87 and heart rate 95. Initial labs showed WBC normal at 6.2, Hb 14.2, platelet count 123, AST 36, ALT 1894, and T. bili 7.5.
His lipase was elevated at 819. Urinalysis negative for signs of UTI. His COVID-19 antigen was negative. Abdominal ultrasound showed gallbladder sludge with tiny gallstones with mild intra and extrahepatic biliary dilatation. Subsequent CT
abdomen/pelvis on 10/14/2024 showed bibasilar pneumonia with haziness about the pancreatic head concerning for mild acute pancreatitis, and many small pancreatic cyst. Also moderate intrahepatic biliary dilatation. He had an MRCP on 10/15/2024
showing an obstructive pancreatic head mass measuring 3.3 x 2.3 x 2.1 cm. There was associated biliary and pancreatic ductal dilatation. Also severe bilateral pneumonia with numerous scattered pancreatic cysts likely a combination of sidebranch
intraductal papillary mucinous neoplasms and pseudocyst. Due to his severe bilateral pneumonia, pulmonary service now consulted for additional management/recommendations.
Chronic conditions MANAGER POLICY: History of right lower lobe adenocarcinoma via biopsy from [facility] (10/06/2024), history of ITP (diagnosed 2021), history of Klebsiella pneumonia seen on sputum culture from 10/03/2024), recurrent pneumonia in
July 2024 + September 2024, history of transaminitis suspected to be from Diflucan with drug-induced liver injury, chronic HFmrEf, history of NICM, GERD, GABRIELA noncompliant with CPAP, anxiety, sinus infection in 10/11/2024
Impression:
#Severe bilateral consolidative opacities in the setting of recently diagnosed right-sided NSCLC (diagnosed on 10/06/2024 and [facility] from the right lower lobe via IR CT guided Bx - per Oncology, this is either truly lung primary vs
pancreatic primary w/ mets with possible post-obstructive pneumonia)
#Obstructing pancreatic head mass suspicious for pancreatic cancer with associated biliary & pancreatic ductal dilatation; given recently negative PET, DDx also includes obstructive stone vs pancreatitis
#Leukopenia
#Thrombocytopenia likely due to sepsis from pneumonia
#Hypochloremia
#Transaminitis with hyperbilirubinemia likely due to obstructive pancreatic head mass with suspected pancreatic cancer
#Hypercholesterolemia
#Elevated lipase likely due to acute pancreatitis
#Recent acute left maxillary sinusitis with green nasal discharge
#History of ITP on Tavalisse
Plan:
- He was recently diagnosed with right lower lobe adenocarcinoma via CT guided lung Bx on 10/06/2024 at [facility], and has a history of recent pneumonia diagnosed on 10/03/2024 with sputum culture growing Klebsiella pneumonia at [facility] --> Per oncology, the
immunostains from pathology at [facility] revealed GI markers, hence making his primary cancer from the pancreas with metastasis to the lung a top differential; what is odd is that he had a recent PET/CT that did not show any FDG avidity in the abdomen.
Oncology also said that sometimes lung cancer can stain (+) with GI markers
- Of note, he has had a similar distribution of his consolidations since August 2024 per imaging reports from [facility]. Given his admission WBC count was 6.2, I am more inclined to think this malignant spread +/- post-obstructive
pneumonia/pneumonitis, and whether this is spread from primary pulmonary or pancreatic remains to be known
- Would obtain prior imaging from [facility] so that we can compare our imaging to see if this is truly a new process or just his prior pneumonia that has not fully resolved radiographically - the brought in the CD of the PET/CT, and
we should load this into our system for all providers to review
- Procalcitonin negative (0.06)
- ID consulted, continue to observe off antibiotics; he is continued on his treatment with Levaquin for his acute bacterial rhinosinusitis which was diagnosed prior to arrival (complete until 10/18)
- Heme/Onc consulted - continue to hold Tavalisse as this can worsen his transaminitis
- He was planning to be evaluated by [facility] next week for treatment option
- Trend WBC count and monitor for fevers
- He is awaiting EUS with ERCP tomorrow (10/17/2024) with Dr. Wood for pancreatic biopsy and stent placement
- trend LFTs and T. bili and D. bili
- Continue his prednisone taper that he was on prior to arrival due to GGO seen on imaging (started by Dr. Mayer); monitor blood glucose while on steroids with goal BG >100 and <180
- Maintain SpO2 >90-94% with supplemental O2 as needed
- Continue nebulized albuterol with prn nebulized bronchodilators for any breakthrough symptoms --> he wants to get the nebs TID as thats what he does at home
- Incentive spirometer encouraged q1hr while awake
- Continue Symbicort 80mcg + Spiriva as he takes Trelegy at home
- Replete electrolytes with K>4, Mg>2
- Trend H/H and transfuse if needed to keep Hb>7g/dL; keep plt>20k, unless there is concern for bleeding then keep plt>50k
- DVT ppx: LMWH
Pulmonary service will continue to follow along. Suspect that he will follow with pulmonary at [facility] with Dr. Mayer, and I advised him to continue seeing her after he is discharged from here.
Data:
MRCP 10/15/2024:
1. Obstructing pancreatic head mass in keeping with primary pancreatic neoplasm, measuring approximately 3.3 x 2.3 x 2.1 cm. Associated biliary and pancreatic ductal dilatation. Evaluation for vascular involvement limited without contrast, although
no obvious involvement is appreciated.
2. Numerous scattered pancreatic cystic lesions likely combination of side branch intraductal papillary mucinous neoplasms and pseudocysts.
3. Severe bilateral pneumonia.
4. Gallbladder wall edema/pericholecystic fluid, likely reactive.
CT abdomen/pelvis with IV contrast 10/14/2024:
Findings suggesting significant bibasilar pneumonia.
Haziness about the pancreatic head concerning for mild acute pancreatitis.
Many small pancreatic cysts. Likely benign. Malignancy cannot be excluded. Nonurgent MRI examination recommended when the patient is able if not previously evaluated
Moderate intrahepatic biliary dilatation. Along with the recent ultrasound findings, this may be due to a stone or sludge in the CBD. Findings due to one of the pancreatic masses or a mass not well seen by CT examination cannot be excluded. This
could further be evaluated by MRCP.
Nonobstructing bilateral renal stones.
Bilateral too small to characterize hypodense renal lesions likely benign cysts.
Left adrenal masses noted. These may be a benign or malignant. Nonurgent MRI examination recommended
Moderate fecal material throughout the colon
Diverticulosis
Total time spent today was 38 minutes for this encounter. Time includes reviewing laboratory test/imaging results, reviewing pertinent medical records, obtaining and reviewing medical history, performing an appropriate exam, ordering medications,
tests and procedures. Time also includes documentation of this encounter, coordinating patient care and communicating with other healthcare professionals. Total time does not include separately billed tests performed on this date of service.
Subjective Data
-
Date of Service:
Date of Service: October 16, 2024
Chief Complaint: Pulmonary Follow Up
Subjective:
Patient was seen and evaluated today at bedside. He denies shortness of breath. Has a dry cough. His , Hailey, he is at bedside. He feels well, denying chest pain, IVAN, nausea, fevers or chills.
Review of Systems
General: Other (Negative unless mentioned above)
Objective Data
Data Reviewed
Vital Signs / I&O / Oxygen:
Vital Signs
Temp Pulse Resp BP Pulse Ox
98.1 F 90 18 131/84 90
10/16/24 08:47 10/16/24 08:47 10/16/24 08:47 10/16/24 08:47 10/16/24 08:47
Intake and Output
10/15/24 10/16/24 10/17/24
06:59 06:59 06:59
Intake Total 600 / 600 1959
Output Total 800 / 800
Balance -200 / -200 1959
SaO2 90
Physical Exam
General: Respiratory Distress (negative), Comfortable, Chills (negative) and Sweats (negative)
HEENT: Normocephalic and Anicteric
Cardiovascular: S1-S2, Rub (negative) and Peripheral Edema (negative)
Respiratory: Wheeze (negative), Crackles (Bibasilar), Rhonchi (negative), Accessory Resp Muscle Use (negative) and Stridor (negative)
GI: Soft, Non Distended, Non Tender and Normal Bowel Sounds
Neurology: AO x 3 and Tremors (negative)
Skin: Warm, Dry, Cyanosis (negative) and Jaundice
Labs/Micro/Reports
Lab Data
10/16/24 06:26
10/16/24 06:26
Microbiology
10/14/24 13:36 Nasal Swab Influenza Types A & B (GEORGE) - Final
Negative for Influenza A & B, NAAT
Negative results must be combined with clinical observations
and patient history.
Nucleic Acid Amplification test (NAAT)performed on the
[employer] platform.
[2024-10-16 11:05] VITALS: BP 105/67
--- NOTE | 2024-10-16 13:26 | W.PN.GS2 ---
Addendum entered and electronically signed by Bryan White MD 10/16/24 14:04:
I saw and examined the patient.
The Manager Surgical's note was reviewed and I agree with the note.
Comment: No complaints. Cathi diet. Abd soft, mild periumbilical ttp, nd; for eus/ercp/stent with sampling tentatively tomorrow with GI. GS will follow peripherally.
Original Note:
Today's Communication / Plan
-
NPO after Mn for procedure
Assessment / Plan
-
79 yo male with recent diagnosis of RLL adenocarcinoma after being treated for recurrent PNA at [place] who was undergoing outpatient oncologic work up with outpatient labs demonstrating significantly abnormal LFT's prompting recommendation to
present through the ED for evaluation. LFT's elevated with obstructive jaundice secondary to pancreatic head mass with upstream biliary obstruction noted on MRCP. No RUQ pain/tenderness.
No n/v, tolerating diet. LFTs elevated but stable. ID following on ABX PO.
--NPO after MN for tentative EUS/ERCP biopsy, stent placement on 10/17
--Diet post procedure as per GI
--No surgery planned at this time, will need continued oncologic work up
Subjective Data
-
Date of Service: October 16, 2024
Patient seen and examined at bedside with Dr. White. OOB to chair and with family. Denies n/v. Tolerating diet. Minimal discomfort near the umbilicus with palpation to abdomen.
Objective Data
-
Intake and Output
10/15/24 10/16/24 10/17/24
06:59 06:59 06:59
Intake Total 600 / 600 1959
Output Total 800 / 800
Balance -200 / -200 1959
Intake:
Oral fluids 960 / 960
IV fluids (Total) 600 / 600 1000 / 1000
Lr 1,000 ml @ 100 mls/hr IV . 600 / 600
Q10H [facility] Rx#:[id number]
Output:
Urine, Voided 800 / 800
Other:
Number of approximated MODERATE 3
amounts of urine
Vital Signs
Temp Pulse Resp BP Pulse Ox
97.4 F 84 18 105/67 96
10/16/24 11:05 10/16/24 11:05 10/16/24 11:05 10/16/24 11:05 10/16/24 11:05
Lab Results
10/16/24 06:26
10/16/24 06:26
Calcium 8.7 mg/dl (8.4-10.2) 10/16/24 06:26
Magnesium 1.9 mg/dl (1.6-2.3) 10/16/24 06:26
Total Bilirubin 7.8 mg/dl (0.2-1.3) H 10/16/24 06:26
Direct Bilirubin 5.8 mg/dl (0.0-0.4) H 10/14/24 13:36
AST 845 U/L (17-59) H* 10/16/24 06:26
ALT 1840 U/L (0-50) H* 10/16/24 06:26
Alkaline Phosphatase 288 U/L (38-126) H 10/16/24 06:26
Total Protein 5.5 g/dl (6.3-8.2) L 10/16/24 06:26
Albumin 3.1 g/dl (3.5-5.0) L 10/16/24 06:26
Physical Exam
-
NAD
ABD soft, nd, mild tenderness above umbilicus
Jaundiced/pale
[2024-10-16] MEDS: ATIVAN 0.5 MG PO ×2 (13:39→21:20)
--- NOTE | 2024-10-16 14:21 | W.PN.ONC ---
Today's Communication / Plan
-
for EGD/EUS w/ ERCP tomorrow w/ GI
follow CBC
Impression
Impression
Adenocarcinoma - RLL lung
pancreatic head mass
obstructive jaundice
ITP
Plan
Plan
1. Adenocarcinoma - RLL lung lesion
-immunostains from pathology [place] revealed CDX2 positivity which is a GI marker
-w/ pancreatic head lesion - raises suspicion for possible pancreatic primary w/ lung lesion as metastatic focus
-discussed recent PET/CT done on 09/30 w/ radiology at [facility] where it was completed - per radiologist - no hypermetabolic activity in pancreas - no apparent ductal dilation on that imaging study - will attempt to have PET/CT reviewed at in
comparison to MRI
2. Elevated LFTs w pancreatic head lesion -
-await further GI w/u - and pathology from EGD/EUS and ERCP
3. ITP - will hold Tavalisse temporarily - as can increase LFTs
-if LFTs improve following procedure - will resume
-follow CBC
Will continue to follow with you.
Subjective/Objective
Subjective/Objective
feels decent, no abdominal pain
Vital Signs:
Vital Signs
Temp Pulse Resp BP Pulse Ox
97.4 F 84 18 105/67 96
10/16/24 11:05 10/16/24 11:05 10/16/24 11:05 10/16/24 11:05 10/16/24 11:05
Lab Results:
Laboratory Data
WBC 4.8 10^3/uL (4.8-10.8) 10/16/24 06:26
Hgb 13.6 g/dL (13.0-18.0) 10/16/24 06:26
Plt Count 97 10^3/uL (130-400) L 10/16/24 06:26
PT 13.5 Sec (11.4-14.6) 10/15/24 05:49
INR 1.00 10/15/24 05:49
eGFR > 60.00 10/16/24 06:26
Exam: unchanged
[2024-10-16 15:00] VITALS: BP 116/70
--- NOTE | 2024-10-16 15:37 | CM ---
Initial assessment was completed with pt at bedside.
Pt is a 79yr old male admitted with pancreatitis, Adenocarcinoma and RLL Lung Lesion.
At baseline, pt lives with his in a 2 story home with 1 step to enter.
Pt is indep at baseline with mobility and ADLs.
Pt has no current/hx of DME/VN/SNF.
PCP; Stefano Morfin
Pharm; BALA Zarate
PLAN; Anticipate dc to home with no needs, Continue to follow
[2024-10-16 16:21] LABS: CEA 5.02 ng/ml
[2024-10-16] MEDS: LOVENOX 40 MG SC (17:33)
[2024-10-16 20:30] VITALS: BP 119/65
--- NOTE | 2024-10-16 21:00 | PTCARENOTE ---
Pt does not want to be woken up for vital signs this evening. Order in chart to not wake pt up overnight for vitals. Vital signs obtained at 20:30. RR noted to be 34, but pt denies feeling SOB or having any respiratory distress. SaO2= 94% on RA.
[2024-10-17 06:00] VITALS: BMI 28.7
[2024-10-17] MEDS: SPIRIVA RESPIMAT 2.5 MCG 2 PUFF INH (07:21)
[2024-10-17] MEDS: SYMBICORT 80/4.5 MCG INHALER 2 PUFF INH ×2 (07:21→20:02)
[2024-10-17] MEDS: VENTOLIN NEBULES 2.5 MG INH ×3 (07:21→20:01)
[2024-10-17 07:30] VITALS: BP 115/78
[2024-10-17 08:21] LABS: % Immature Granulocytes 0.9 % (0-0.5); % Lymphocytes 10.8 % (20.5-51.1); % Neutrophils 85.3 % (42.2-75.2); Absolute Lymphocytes 0.5 10^3/uL (1.2-3.4); Absolute Monocytes 0.1 10^3/uL (0.1-0.6); Absolute Neutrophils 3.7 10^3/uL (1.4-6.5); Hematocrit 38.7 % (39.0-52.0); Hemoglobin 13.3 g/dL (13.0-18.0); Mean Corp Hgb Conc. 34.4 g/dL (33.0-37.0); Mean Corpuscular Hgb 31.4 pg (27.0-31.0); Mean Corpuscular Volume 91.3 fL (80.0-94.0); Mean Platelet Volume 11.9 fL (7.4-10.4); Nucleated Red Blood Cells % 1.4 % (-); Platelet Count 91 10^3/uL (130-400); Red Blood Cell Count 4.24 10^6/uL (4.70-6.10); Red Cell Dist. Width 14.2 % (11.5-14.5); White Blood Cell Count 4.4 10^3/uL (4.8-10.8)
[2024-10-17 08:51] LABS: Albumin 3.3 g/dl (3.5-5.0); Alkaline Phosphatase 292 U/L (38-126); Blood Urea Nitrogen 21 mg/dl (9-20); Calcium 8.8 mg/dl (8.4-10.2); Carbon Dioxide 30 mmol/L (22-30); Chloride 98 mmol/L (98-107); Estimated Creatinine Clearance 99 ml/min; Glucose 94 mg/dl (70-99); Potassium 3.6 mmol/L (3.5-5.1); Sodium 135 mmol/L (135-145); Total Bilirubin 9.1 mg/dl (0.2-1.3); Total Protein 5.6 g/dl (6.3-8.2); eGFR > 60.00
[2024-10-17] MEDS: LEVAQUIN 750 MG PO (08:52)
[2024-10-17] MEDS: PROTONIX IV 40 MG IV (08:52)
[2024-10-17] MEDS: NSS (PRESERVATIVE FREE) 10 ML IV (08:52)
[2024-10-17] MEDS: COREG 25 MG PO (08:52)
[2024-10-17] MEDS: DELTASONE 50 MG PO (08:52)
[2024-10-17] MEDS: XALATAN OPHTHALMIC SOLUTION 1 DROP BOTH EYES (08:55)
[2024-10-17 09:19] LABS: ALT (SGPT) 1835 U/L (0-50); AST (SGOT) 812 U/L (17-59)
--- NOTE | 2024-10-17 09:27 | W.PN.HOSP.TC ---
Today's Communication/Plan
-
EUS/ERCP for tomorrow as discussed with GI
Continue antibiotics for sinusitis
Continue DVT prophylaxis with Lovenox
Assessment / Plan
Assessment / Plan
Physical Exam
Gen: NAD, AAOx3, appears chronically ill.
Neck: supple.
CV: remains RRR, +S1/S2
Resp: CTAB
Abd: +BS, soft, NT, ND
Skin: + jaundice
Neuro: CN 2-12 intact, non-focal.
Psych: Normal mood and affect.
Assessment/Plan
CT A/P w/IV: Findings suggesting significant bibasilar pneumonia. Haziness about the pancreatic head concerning for mild acute pancreatitis. Many small pancreatic cysts. Likely benign. Malignancy cannot be excluded. Nonurgent MRI examination
recommended when the patient is able if not previously evaluated. Moderate intrahepatic biliary dilatation. Along with the recent ultrasound findings, this may be due to a stone or sludge in the CBD. Findings due to one of the pancreatic masses or a
mass not well seen by CT examination cannot be excluded. This could further be evaluated by MRCP. Nonobstructing bilateral renal stones. Bilateral too small to characterize hypodense renal lesions likely benign cysts. Left adrenal masses noted.
These may be a benign or malignant. Nonurgent MRI examination recommended. Moderate fecal material throughout the colon. Diverticulosis.
Abd U/S: Gallbladder sludge and probable tiny gallstones. Mild intra and extrahepatic biliary dilatation. These findings can be seen with acute cholecystitis. Clinical and laboratory correlation recommended. Hepatic fatty infiltration. Simple
bilateral renal cysts. Nonvisualization of the pancreas and proximal IVC and abdominal aorta due to overlying bowel gas.
MRCP:
1. Obstructing pancreatic head mass in keeping with primary pancreatic neoplasm, measuring approximately 3.3 x 2.3 x 2.1 cm. Associated biliary and pancreatic ductal dilatation. Evaluation for vascular involvement limited without contrast, although
no obvious involvement is appreciated.
2. Numerous scattered pancreatic cystic lesions likely combination of side branch intraductal papillary mucinous neoplasms and pseudocysts.
3. Severe bilateral pneumonia.
4. Gallbladder wall edema/pericholecystic fluid, likely reactive.
#Acute pancreatitis due to obstructing pancreatic head mass:
-likely malignancy based on imaging above
-new left adrenal mass
-s/p IVFs
-low fat diet until midnight after which NPO
-discussed with GI, EUS w/ FNA and ERCP w/ stent placement on 10/18/24
-Dilaudid/Zofran PRN
-ONC to see
-trend LFTs although clearly they will not improve without relief of obstruction
#Chronic cough and persistent abnormal lung opacities secondary to malignancy/metatases
-Persistent Pneumonia treated July 2024 and 10/03/2024 at [facility], - chronic cough and persistent abnormal lung opacities are due to malignancy/mets rather than pneumonia as supported by negative procalcitonin
-had outpatient sputum cultures that were positive for Klebsiella he was started on IV cefepime per ID in the hospital on 10/03/2024 sputum cultures were negative by discharge on 10/07/2024 per report.
-Patient started steroids inpatient 10/03/2024 transition to 60 mg x 5 days to start 50 mg x 5 days tomorrow 10/15/2024 to taper by 10 mg every 5 days until finished (when patient tapers off of steroids he has a persistent cough per daughter)
-PET scan from 09/30/2024 reports shows numerous bilateral pulmonary nodules with surrounding groundglass attenuation and hypermetabolic activity NO other active areas throughout the chest abdomen and pelvis
-appreciate pulm and ID, 5 days Levaquin
#Acute left maxillary sinusitis with green nasal drainage, improving.
-Continue levofloxacin 750mg po daily x 7 days till 10/20.
Other Problems
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 Note, stains revealed CDX2 positivity which is a GI marker. Likely that primary tumor is pancreatic mass with lung lesion as metastatic mass.
h/o ITP: Dx 2021, cont Tavalisse if LFTs improve following EUS/ERCP procedure -- continue to hold Tavalisse for now as it can worsen transaminitis
Chronic HFmrEF: Holding Entresto/Jardiance. Cont BB. Daily wts, I/Os.
GERD: cont PPI
GABRIELA, intolerant CPAP
Obesity due to excess calories
FULL/Lovenox
Anticipated Discharge: > 48 hours
Subjective/Interval History
-
Date of Service: October 17, 2024
Patient was seen and examined. He denied any new symptoms.
Objective Data
-
Labs:
Laboratory Results
10/17/24
07:40
WBC 4.4 L
Hgb 13.3
Hct 38.7 L
Plt Count 91 L
Sodium 135
Potassium 3.6
Chloride 98
Carbon Dioxide 30
BUN 21 H
Creatinine 0.7
Glucose 94
Calcium 8.8
Total Bilirubin 9.1 H
AST 812 H*
ALT 1835 H*
Alkaline Phosphatase 292 H
Vital Signs:
Vital Signs
Temp Pulse Resp BP Pulse Ox
97.6 F 93 18 115/78 92
10/17/24 07:30 10/17/24 07:30 10/17/24 07:30 10/17/24 07:30 10/17/24 07:30
I&O
10/16/24 10/17/24 10/18/24
06:59 06:59 06:59
Intake Total 1959 /
Balance 1959 /
--- NOTE | 2024-10-17 13:35 | W.PN.ONC2 ---
Today's Communication / Plan
-
trend LFTs
ERCP today
follow for path
and daughter at bedside provided with updates and questions answered
Impression
Impression
Adenocarcinoma - RLL lung
pancreatic head mass
obstructive jaundice
ITP
Plan
Plan
1. Adenocarcinoma - RLL lung lesion
-immunostains from pathology [place] revealed CDX2 positivity which is a GI marker
-w/ pancreatic head lesion - raises suspicion for possible pancreatic primary w/ lung lesion as metastatic focus
-PET/CT done on 09/30 no hypermetabolic activity in pancreas - no apparent ductal dilation on that imaging study
2. Elevated LFTs w pancreatic head lesion -
-await further GI w/u - and pathology from EGD/EUS and ERCP
3. ITP - will hold Tavalisse temporarily - as can increase LFTs
-if LFTs improve following procedure - will resume
-follow CBC
Will continue to follow with you.
Subjective/Objective
Subjective
no new complaint
Vital Signs:
Vital Signs
Temp Pulse Resp BP Pulse Ox
97.6 F 78 16 115/78 92
10/17/24 07:30 10/17/24 13:12 10/17/24 13:12 10/17/24 07:30 10/17/24 13:12
Lab Results:
Laboratory Data
WBC 4.4 10^3/uL (4.8-10.8) L 10/17/24 07:40
Hgb 13.3 g/dL (13.0-18.0) 10/17/24 07:40
Plt Count 91 10^3/uL (130-400) L 10/17/24 07:40
PT 13.5 Sec (11.4-14.6) 10/15/24 05:49
INR 1.00 10/15/24 05:49
eGFR > 60.00 10/17/24 07:40
Physical Exam
General: Well Developed and No Apparent Distress
HEENT: Jaundice
Cardiology: Normal Sinus Rhythm
Pulmonary: Clear
Neurology: Non Focal
--- NOTE | 2024-10-17 15:13 | W.PN.PUL3 ---
Today's Communication / Plan
-
Continue with current care from the pulmonary perspective
Awaiting ERCP to address pancreatic mass
Will follow
Assessment
-
Assessment: 79-year-old male with a past medical history of right-sided lung cancer via biopsy at [facility] on 10/06/2024, history of ITP (diagnosed 2021), history of Klebsiella pneumonia seen on sputum culture from 10/03/2024, recurrent
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 He has
reported that over the last 4 days he has been jaundiced with swelling to his face and dark mary-colored urine. Also having some right upper and left upper quadrant abdominal pain which has been occasional. He was admitted to [facility]
from 10/03 - 10/08/2024 due to a cough which was found to be due to adenocarcinoma, which was biopsied during his recent admission. He had a previously negative hepatitis panel and TB workup was also negative. He was given IV steroids during his
last hospitalization and placed onto prednisone 60 mg daily with a taper. He also apparently had a PET/CT scan of his body. He has plans to follow-up with [facility] for his lung cancer. He is lost about 20 pounds since July 2024
and has had a dry cough recently. He was recently placed on doxycycline 100 mg twice daily after seeing ENT 4 days ago and diagnosed with a sinus infection. He is managed on Tavalisse for a history of ITP. He currently denies shortness of breath,
nausea, vomiting, diarrhea, sore throat or headache. In the ER he was afebrile, and saturating 99% on room air with BP 141/87 and heart rate 95. Initial labs showed WBC normal at 6.2, Hb 14.2, platelet count 123, AST 36, ALT 1894, and T. bili 7.5.
His lipase was elevated at 819. Urinalysis negative for signs of UTI. His COVID-19 antigen was negative. Abdominal ultrasound showed gallbladder sludge with tiny gallstones with mild intra and extrahepatic biliary dilatation. Subsequent CT
abdomen/pelvis on 10/14/2024 showed bibasilar pneumonia with haziness about the pancreatic head concerning for mild acute pancreatitis, and many small pancreatic cyst. Also moderate intrahepatic biliary dilatation. He had an MRCP on 10/15/2024
showing an obstructive pancreatic head mass measuring 3.3 x 2.3 x 2.1 cm. There was associated biliary and pancreatic ductal dilatation. Also severe bilateral pneumonia with numerous scattered pancreatic cysts likely a combination of sidebranch
intraductal papillary mucinous neoplasms and pseudocyst. Due to his severe bilateral pneumonia, pulmonary service now consulted for additional management/recommendations.
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
July 2024 + September 2024, history of transaminitis suspected to be from Diflucan with drug-induced liver injury, chronic HFmrEf, history of NICM, GERD, GABRIELA noncompliant with CPAP, anxiety, sinus infection in 10/11/2024
Impression:
#Severe bilateral consolidative opacities in the setting of recently diagnosed right-sided NSCLC (diagnosed on 10/06/2024 and [facility] from the right lower lobe via IR CT guided Bx - per Oncology, this is either truly lung primary vs
pancreatic primary w/ mets with possible post-obstructive pneumonia)
#Obstructing pancreatic head mass suspicious for pancreatic cancer with associated biliary & pancreatic ductal dilatation; given recently negative PET, DDx also includes obstructive stone vs pancreatitis
#Leukopenia
#Thrombocytopenia likely due to sepsis from pneumonia
#Hypochloremia
#Transaminitis with hyperbilirubinemia likely due to obstructive pancreatic head mass with suspected pancreatic cancer
#Hypercholesterolemia
#Elevated lipase likely due to acute pancreatitis
#Recent acute left maxillary sinusitis with green nasal discharge
#History of ITP on Tavalisse
Plan:
- He was recently diagnosed with right lower lobe adenocarcinoma via CT guided lung Bx on 10/06/2024 at [facility], and has a history of recent pneumonia diagnosed on 10/03/2024 with sputum culture growing Klebsiella pneumonia at [facility] --> Per oncology, the
immunostains from pathology at [facility] revealed GI markers, hence making his primary cancer from the pancreas with metastasis to the lung a top differential; what is odd is that he had a recent PET/CT that did not show any FDG avidity in the abdomen.
Oncology also said that sometimes lung cancer can stain (+) with GI markers
- Of note, he has had a similar distribution of his consolidations since August 2024 per imaging reports from [facility]. Given his admission WBC count was 6.2, I am more inclined to think this malignant spread +/- post-obstructive
pneumonia/pneumonitis, and whether this is spread from primary pulmonary or pancreatic remains to be known.
-
- Would obtain prior imaging from [facility] so that we can compare our imaging to see if this is truly a new process or just his prior pneumonia that has not fully resolved radiographically - the brought in the CD of the PET/CT, and
we should load this into our system for all providers to review
- Procalcitonin negative (0.06)-clinically not behaving like infection.
- ID consulted, continue to observe off antibiotics; he is continued on his treatment with Levaquin for his acute bacterial rhinosinusitis which was diagnosed prior to arrival (complete unt
- 10/18)
- Heme/Onc following - continue to hold Tavalisse as this can worsen his transaminitis
- He was planning to be evaluated by [facility] next week for treatment option
- Trend WBC count and monitor for fevers
- He is awaiting EUS with ERCP(10/17/2024) with Dr. Wood for pancreatic biopsy and stent placement
Not bronchospastic on exam. Not requiring supplemental oxygen.
- Continue his prednisone taper that he was on prior to arrival due to GGO seen on imaging (started by Dr. Mayer); monitor blood glucose while on steroids with goal BG >100 and <180
- Continue nebulized albuterol with prn nebulized bronchodilators for any breakthrough symptoms --> he wants to get the nebs TID as thats what he does at home
- Incentive spirometer encouraged q1hr while awake
- Continue Symbicort 80mcg + Spiriva as he takes Trelegy at home
- DVT ppx: LMWH
Pulmonary will follow briefly. Does not appear to be any acute pulmonary decompensation at this point.
Suspect that he will follow with pulmonary at [facility] with Dr. Mayer, and I advised him to continue seeing her after he is discharged from here.
Data:
MRCP 10/15/2024:
1. Obstructing pancreatic head mass in keeping with primary pancreatic neoplasm, measuring approximately 3.3 x 2.3 x 2.1 cm. Associated biliary and pancreatic ductal dilatation. Evaluation for vascular involvement limited without contrast, although
no obvious involvement is appreciated.
2. Numerous scattered pancreatic cystic lesions likely combination of side branch intraductal papillary mucinous neoplasms and pseudocysts.
3. Severe bilateral pneumonia.
4. Gallbladder wall edema/pericholecystic fluid, likely reactive.
CT abdomen/pelvis with IV contrast 10/14/2024:
Findings suggesting significant bibasilar pneumonia.
Haziness about the pancreatic head concerning for mild acute pancreatitis.
Many small pancreatic cysts. Likely benign. Malignancy cannot be excluded. Nonurgent MRI examination recommended when the patient is able if not previously evaluated
Moderate intrahepatic biliary dilatation. Along with the recent ultrasound findings, this may be due to a stone or sludge in the CBD. Findings due to one of the pancreatic masses or a mass not well seen by CT examination cannot be excluded. This
could further be evaluated by MRCP.
Nonobstructing bilateral renal stones.
Bilateral too small to characterize hypodense renal lesions likely benign cysts.
Left adrenal masses noted. These may be a benign or malignant. Nonurgent MRI examination recommended
Moderate fecal material throughout the colon
Diverticulosis
Subjective Data
-
Date of Service:
Date of Service: October 17, 2024
Chief Complaint: Pulmonary Follow Up
Objective Data
Data Reviewed
Vital Signs / I&O / Oxygen:
Vital Signs
Temp Pulse Resp BP Pulse Ox
97.6 F 78 16 115/78 92
10/17/24 07:30 10/17/24 13:12 10/17/24 13:12 10/17/24 07:30 10/17/24 13:12
Intake and Output
10/16/24 10/17/24 10/18/24
06:59 06:59 06:59
Intake Total 1959
Balance 1959
SaO2 92
Physical Exam
General: Respiratory Distress (negative), Comfortable, Chills (negative) and Sweats (negative)
HEENT: Normocephalic and Anicteric
Cardiovascular: S1-S2, Rub (negative) and Peripheral Edema (negative)
Respiratory: Wheeze (negative), Crackles (Bibasilar), Rhonchi (negative), Accessory Resp Muscle Use (negative) and Stridor (negative)
GI: Soft, Non Distended, Non Tender and Normal Bowel Sounds
Neurology: AO x 3 and Tremors (negative)
Skin: Warm, Dry, Cyanosis (negative) and Jaundice
Labs/Micro/Reports
Lab Data
10/17/24 07:40
10/17/24 07:40
Microbiology
10/14/24 13:36 Nasal Swab Influenza Types A & B (GEORGE) - Final
Negative for Influenza A & B, NAAT
Negative results must be combined with clinical observations
and patient history.
Nucleic Acid Amplification test (NAAT)performed on the
[employer] platform.
[2024-10-17 15:50] VITALS: BP 102/48
--- NOTE | 2024-10-17 16:42 | W.PN.GI.CBS2 ---
Today's Communication / Plan
-
EUS/ERCP postponed this afternoon. Discussed with family. Okay for low-fat diet and keep NPO at [place]. Plan for EUS/ERCP tomorrow with Dr. Wood. See rest of care as outlined below.
Assessment / Plan
-
#Pancreatic Head Mass c/f #Pancreatic Malignancy c/b
#Biliary Obstruction
#Elevated LFTs
#Painless Jaundice
#Unintentional Weight Loss
#Hx of RLL Lung Adeno (CDX2 positivity, c/ metasatic lesion)
#Hx of ITP
This is a 79-year-old male with past medical history of HFmrEF, ITP (on Tavalisse), and recent hospitalization at [facility] for pneumonia (10/03 - 10/08/24) and recent diagnosis of RLL lung adenocarcinoma (bx 10/06/2024 at [facility]) who presented
to the hospital with elevated LFTs on outpatient labs and painless jaundice along with a 20 pound unintentional weight loss. Initially, there was concern for potential choledocholithiasis given biliary ductal dilatation seen on both US and CT
Abd/pelvis revealing moderate intrahepatic and extrahepatic biliary ductal dilatation. There was mild haziness around the pancreatic head concerning for possible pancreatitis as well given his elevated lipase. An MRI/MRCP 10/15/2024 revealed an
obstructing pancreatic head mass in keeping with primary pancreatic neoplasm measuring approximately 3.3 x 2.3 x 2.1 cm with upstream biliary ductal dilatation as well as pancreatic ductal dilatation up to 1.1 cm. Imaging was limited for vascular
involvement however there was additional numerous scattered PCLs suspicious for sidebranch IPMN's and pseudocysts. He denies any prior history of pancreatitis. Of note, prior US (at [facility]) was performed for his elevated LFTs on 10/03/2024 which
revealed a dilated CBD up to 9.5 mm along with a 2.1 cm cystic lesion within the pancreas. Additionally, an OSH PET Scan 09/30/2024 was negative for any abdominal process. Regardless, suspect his elevated LFTs in setting of obstructive jaundice
secondary to his pancreatic head mass with upstream biliary obstruction/dilatation. Suspicious for primary pancreatic cancer given MRCP findings. Otherwise, he is without any signs or symptoms to suggest cholangitis. He did receive prior
antibiotics as well along with fluconazole at his OSH and may be a component of underlying DILI contributing, but less likely. Prior hepatitis serologies (-). However, given his obstruction secondary to his pancreatic mass would defer any chronic
serologic w/u of liver disease at this time. He would benefit from an expedited EUS/ERCP this admission with Dr. Wood on 10/17/2024.
Upon review of records per Oncology, immunostains from pathology at [facility] revealed CDX2 positivity which is a GI marker, concerning for primary pancreatic with lung lesion as a metastatic focus
Recommendations:
- Okay for low-fat diet as tolerated, keep NPO at [place]
- Trend LFTs and T Bili q daily
- Synthetic function remains intact given nml INR
- Tavalisse now on hold given elevated LFTs as per Oncology
- Defer further serologic w/u at this time pending biliary decompression to assess response. Prior hepatitis serologies (-)
- Will need an EUS w/ FNA and ERCP w/ stent placement given pancreatic head mass with biliary obstruction
- Unfortunately, needed to postpone EUS/ERCP due to high volume and anesthesia being requested in other high acuity of cases
- Given this, plan for EUS/ERCP tomorrow, , with Dr. Wood
- No concern for cholangitis or biliary sepsis at this time
- Appreciate workers compensation consultant recommendations, ID, Pulmonary and ID following
- Pain control and IV anti-emetics PRN
- Rest of care per primary team
Discussed with patient's and family this afternoon. GI will continue to follow. Updated primary internal medicine team.
Subjective
Subjective
Date of Service: October 17, 2024
- No acute events overnight
Unfortunately, patient's procedures postponed due to high acuity of cases requiring anesthesia later this afternoon. Discussed with patient's family this afternoon regarding recent update. Otherwise, denies any abdominal pain, fevers/chills or other
constitutional symptoms.
Objective
Data Reviewed
Laboratory Data:
Laboratory Results
10/17/24 07:40
10/17/24 07:40
Laboratory Results
PT 13.5 Sec (11.4-14.6) 10/15/24 05:49
INR 1.00 10/15/24 05:49
Magnesium 1.9 mg/dl (1.6-2.3) 10/16/24 06:26
Total Bilirubin 9.1 mg/dl (0.2-1.3) H 10/17/24 07:40
AST 812 U/L (17-59) H* 10/17/24 07:40
ALT 1835 U/L (0-50) H* 10/17/24 07:40
Alkaline Phosphatase 292 U/L (38-126) H 10/17/24 07:40
Lipase 1050 U/L (23-300) H* 10/15/24 05:49
Vital Signs and I&O:
Vital Signs
Temp Pulse Resp BP Pulse Ox
97.4 F 93 18 102/48 93
10/17/24 15:50 10/17/24 15:50 10/17/24 15:50 10/17/24 15:50 10/17/24 15:50
I&O
10/16/24 10/17/24 10/18/24
06:59 06:59 06:59
Intake Total 1959
Balance 1959
Physical Exam
Physical Exam
HEENT: Moist mucous membranes and Other (Scleral icterus)
Pulmonary: Other (Normal WOB on room air)
GI: Soft, Non Distended and Non Tender
Extremities: No Edema
Neuro: Non Focal
[2024-10-17] MEDS: LOVENOX 40 MG SC (17:55)
[2024-10-17] MEDS: ATIVAN 0.5 MG PO (21:26)
[2024-10-17] MEDS: COREG PO (21:28)
[2024-10-17 23:46] LABS: CA 19-9 4158 U/mL (<=35)
[2024-10-18] MEDS: VENTOLIN NEBULES 2.5 MG INH (07:38)
[2024-10-18] MEDS: SPIRIVA RESPIMAT 2.5 MCG 2 PUFF INH (07:38)
[2024-10-18] MEDS: SYMBICORT 80/4.5 MCG INHALER 2 PUFF INH (07:38)
--- NOTE | 2024-10-18 07:39 | W.PN.HOSP.TC ---
Addendum entered and electronically signed by Dean Myers MD 10/18/24 17:32:
Mucin seen in the major papilla, the major papilla appeared to be exuding mucin
Major papilla patulous
Mucin was seen in the minor papilla and the minor papilla appeared patulous
Severe Biliary Structure and Biliary Duct Dilations status post biliary sphincterotomy and status post plastic stent placement into the left hepatic duct
Common Bile Duct Dilation
-Clear Liquids Diet today, can advance to Low Fat Diet tomorrow
-Check CMP, AST, ALT, Alkaline Phosphatase, Total and Direct Bilirubin, Magnesium and Albumin labwork tomorrow 10/18/24 -- very important
-If symptoms become worse, including but not limited to abdominal pain, nausea, vomiting, fever, chest pain, dizziness, confusion, please call 911 and return to the ER right away
-Follow-up with general surgery (Dr. Vu Moreira) as per gastroenterology recommendations
Multiple fundic gland polyps
Multiple cystic lesions were seen in the pancreatic body and pancreatic tail
Main pancreatic duct (MPD) dilation
Pancreatic Head Mass
Original Note:
Today's Communication/Plan
-
Discharge today
Assessment / Plan
Assessment / Plan
Physical Exam
Gen: NAD, AAOx3
Neck: Supple.
CV: RRR, +S1/S2
Resp: CTAB
Abd: +BS, soft, NT, ND
Skin: + jaundice
Neuro: CN 2-12 intact, non-focal.
Psych: Normal mood and affect.
Assessment/Plan
CT A/P w/IV: Findings suggesting significant bibasilar pneumonia. Haziness about the pancreatic head concerning for mild acute pancreatitis. Many small pancreatic cysts. Likely benign. Malignancy cannot be excluded. Nonurgent MRI examination
recommended when the patient is able if not previously evaluated. Moderate intrahepatic biliary dilatation. Along with the recent ultrasound findings, this may be due to a stone or sludge in the CBD. Findings due to one of the pancreatic masses or a
mass not well seen by CT examination cannot be excluded. This could further be evaluated by MRCP. Nonobstructing bilateral renal stones. Bilateral too small to characterize hypodense renal lesions likely benign cysts. Left adrenal masses noted.
These may be a benign or malignant. Nonurgent MRI examination recommended. Moderate fecal material throughout the colon. Diverticulosis.
Abd U/S: Gallbladder sludge and probable tiny gallstones. Mild intra and extrahepatic biliary dilatation. These findings can be seen with acute cholecystitis. Clinical and laboratory correlation recommended. Hepatic fatty infiltration. Simple
bilateral renal cysts. Nonvisualization of the pancreas and proximal IVC and abdominal aorta due to overlying bowel gas.
MRCP:
1. Obstructing pancreatic head mass in keeping with primary pancreatic neoplasm, measuring approximately 3.3 x 2.3 x 2.1 cm. Associated biliary and pancreatic ductal dilatation. Evaluation for vascular involvement limited without contrast, although
no obvious involvement is appreciated.
2. Numerous scattered pancreatic cystic lesions likely combination of side branch intraductal papillary mucinous neoplasms and pseudocysts.
3. Severe bilateral pneumonia.
4. Gallbladder wall edema/pericholecystic fluid, likely reactive.
#Acute pancreatitis due to obstructing pancreatic head mass
-likely malignancy based on imaging above
-new left adrenal mass
-s/p IVFs
-low fat diet until midnight after which NPO
-discussed with GI, EUS w/ FNA and ERCP w/ stent placement on 10/18/24
-Dilaudid/Zofran PRN
-ONC to see
-trend LFTs although clearly they will not improve without relief of obstruction
-Follow-up with Dr. Dietz within 1 week
#Chronic cough and persistent abnormal lung opacities secondary to malignancy/metatases
-Persistent Pneumonia treated July 2024 and 10/03/2024 at [facility], - chronic cough and persistent abnormal lung opacities are due to malignancy/mets rather than pneumonia as supported by negative procalcitonin
-had outpatient sputum cultures that were positive for Klebsiella he was started on IV cefepime per ID in the hospital on 10/03/2024 sputum cultures were negative by discharge on 10/07/2024 per report.
-Patient started steroids inpatient 10/03/2024 transition to 60 mg x 5 days to start 50 mg x 5 days tomorrow 10/15/2024 to taper by 10 mg every 5 days until finished (when patient tapers off of steroids he has a persistent cough per daughter)
-PET scan from 09/30/2024 reports shows numerous bilateral pulmonary nodules with surrounding groundglass attenuation and hypermetabolic activity NO other active areas throughout the chest abdomen and pelvis
#Acute left maxillary sinusitis with green nasal drainage, improving.
-Continue levofloxacin 750mg po daily x 7 days till 10/20/24.
Other Problems
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 Note, stains revealed CDX2 positivity which is a GI marker. Likely that primary tumor is pancreatic mass with lung lesion as metastatic mass.
h/o ITP: Dx 2021, cont Tavalisse -- discussed with human capital manager Dr. Pate today and since it is thought that the LFTs elevation was from the obstruction, but not Tavalisse, she mentioned that it is okay to continue the Tavalisse on discharge
Chronic HFmrEF: Holding Entresto/Jardiance. Resume Aldactone on discharge. Cont BB. Daily wts, I/Os.
GERD: cont PPI
GABRIELA, intolerant CPAP
Obesity due to excess calories
FULL/Lovenox
I spoke extensively with the patient, patient's and patient's daughter today, and I also spoke with patient's daughter over the phone (I called patient's hospital room and patient's daughter picked up) and I updated patient's daughter on the
ERCP and EUS findings from today. I explained to her that it is very important that patient get repeat labwork tomorrow.
More than 30 minutes spent in discharge including
Final examination of the patient
Summarizing hospital stay
Instructions for continuing care to all relevant caregivers
Preparation of discharge records, prescriptions, and referral forms
Total time spent (in minutes): 45
Anticipated Discharge: Today
Subjective/Interval History
-
Date of Service: October 18, 2024
Patient was seen and examined. He reported no new symptoms, he would really like to leave the hospital after the procedure done today.
Objective Data
-
Labs:
Laboratory Results
10/18/24
06:56
WBC Pending
Hgb Pending
Hct Pending
Plt Count Pending
Sodium Pending
Potassium Pending
Chloride Pending
Carbon Dioxide Pending
BUN Pending
Creatinine Pending
Glucose Pending
Calcium Pending
Total Bilirubin Pending
AST Pending
ALT Pending
Alkaline Phosphatase Pending
Vital Signs:
Vital Signs
Temp Pulse Resp BP Pulse Ox
97.4 F 89 16 93/53 94
10/17/24 15:50 10/17/24 20:06 10/17/24 20:06 10/17/24 21:28 10/17/24 20:06
I&O
10/17/24 10/18/24 10/19/24
06:59 06:59 06:59
Intake Total 880 / 880 720 / 720
Balance 880 / 880 720 / 720
[2024-10-18 07:54] LABS: % Basophils 0.2 % (0-2); % Immature Granulocytes 0.7 % (0-0.5); % Lymphocytes 6.9 % (20.5-51.1); % Monocytes 3.9 % (1.7-9.3); % Neutrophils 88.3 % (42.2-75.2); Absolute Lymphocytes 0.3 10^3/uL (1.2-3.4); Absolute Monocytes 0.2 10^3/uL (0.1-0.6); Absolute Neutrophils 3.9 10^3/uL (1.4-6.5); Hematocrit 37.2 % (39.0-52.0); Hemoglobin 12.8 g/dL (13.0-18.0); Mean Corp Hgb Conc. 34.4 g/dL (33.0-37.0); Mean Corpuscular Hgb 31.1 pg (27.0-31.0); Mean Corpuscular Volume 90.5 fL (80.0-94.0); Nucleated Red Blood Cells % 0.7 % (-); Platelet Count 85 10^3/uL (130-400); Red Blood Cell Count 4.11 10^6/uL (4.70-6.10); Red Cell Dist. Width 14.5 % (11.5-14.5); White Blood Cell Count 4.4 10^3/uL (4.8-10.8)
[2024-10-18 07:59] LABS: Albumin 3.2 g/dl (3.5-5.0); Alkaline Phosphatase 323 U/L (38-126); Blood Urea Nitrogen 24 mg/dl (9-20); Carbon Dioxide 30 mmol/L (22-30); Chloride 99 mmol/L (98-107); Estimated Creatinine Clearance 99 ml/min; Glucose 98 mg/dl (70-99); Potassium 3.3 mmol/L (3.5-5.1); Sodium 136 mmol/L (135-145); Total Bilirubin 9.8 mg/dl (0.2-1.3); Total Protein 5.6 g/dl (6.3-8.2); eGFR > 60.00
[2024-10-18] MEDS: COREG 25 MG PO (08:08)
[2024-10-18] MEDS: DELTASONE 50 MG PO (08:08)
[2024-10-18] MEDS: LEVAQUIN 750 MG PO (08:08)
[2024-10-18] MEDS: NSS (PRESERVATIVE FREE) 10 ML IV (08:09)
[2024-10-18] MEDS: PROTONIX IV 40 MG IV (08:09)
[2024-10-18] MEDS: XALATAN OPHTHALMIC SOLUTION 1 DROP BOTH EYES (08:12)
[2024-10-18 08:13] LABS: ALT (SGPT) 1805 U/L (0-50); AST (SGOT) 775 U/L (17-59)
[2024-10-18 08:33] VITALS: BP 131/74
[2024-10-18] MEDS: KCL 40 MEQ PO (10:09)
--- NOTE | 2024-10-18 12:05 | W.PN.UPDATE ---
Update Note
Progress Note Update
Per hospitalist, patient and family desire discharge home after today's procedure
Will have our office schedule f/u with Dr. Dietz next week to review path and consider options for treatment
Oncology will sign off. Please call if plans change
[2024-10-18] MEDS: VENTOLIN NEBULES INH (13:12)
[2024-10-18 14:30] VITALS: BP 122/70; BP 131/74
[2024-10-18 14:33] VITALS: BP 122/70
[2024-10-18 14:45] VITALS: BP 139/86
--- NOTE | 2024-10-18 14:56 | CM ---
CM following for discharge planning needs. Pt has been off the floor for testing for most of the afternoon.
CM to follow up in am.
[2024-10-18 15:00] VITALS: BP 129/85
[2024-10-18 15:35] VITALS: BP 133/83
[2024-10-18] MEDS: TYLENOL 325 MG PO (16:15)
--- NOTE | 2024-10-18 16:59 | W.PN.UPDATE ---
Update Note
Progress Note Update
Patient tolerated procedure well
No pulmonary decompensation
For discharge today per primary team
Patient will follow-up with [facility] and Dr. Mayer.
Sign off
[2024-10-18] MEDS: LOVENOX 40 MG SC (17:39)
== END 2024-10-18 19:05 | disposition home or self-care (01) | DRG 435 ==
LOC: 3 WEST ACU 22:04
PROVIDERS: Clinical Nurse Specialist Family Health; Emergency Medicine; Internal Medicine Gastroenterology; Nurse Practitioner; ADMITTING PHYSICIAN Hospitalist; ATTENDING PHYSICIAN Hospitalist; CONSULT PHYSICIAN Internal Medicine Critical Care Medicine; CONSULT PHYSICIAN Internal Medicine Hematology & Oncology; CONSULT PHYSICIAN Internal Medicine Infectious Disease; CONSULT PHYSICIAN Student in an Organized Health Care Education/Training Program; CONSULT PHYSICIAN Surgery; EMERGENCY PHYSICIAN Student in an Organized Health Care Education/Training Program
PROC: 0F768DZ Dilation of Left Hepatic Duct with Intraluminal Device, Via Natural or Artificial Opening Endoscopic (ICD-10-PCS; 2024-10-18)
PROC: BF4CZZZ Ultrasonography of Hepatobiliary System, All (ICD-10-PCS; 2024-10-18)
PROC: 0F9G8ZX Drainage of Pancreas, Via Natural or Artificial Opening Endoscopic, Diagnostic (ICD-10-PCS; 2024-10-18)
PROC: 0F798ZZ Dilation of Common Bile Duct, Via Natural or Artificial Opening Endoscopic (ICD-10-PCS; 2024-10-18)
PROC: 0FD98ZX Extraction of Common Bile Duct, Via Natural or Artificial Opening Endoscopic, Diagnostic (ICD-10-PCS; 2024-10-18)
DX: C25.0 Malignant neoplasm of head of pancreas (principal); K83.1 Obstruction of bile duct; K85.90 Acute pancreatitis without necrosis or infection, unspecified; C34.31 Malignant neoplasm of lower lobe, right bronchus or lung; D69.3 Immune thrombocytopenic purpura; I42.8 Other cardiomyopathies; I50.22 Chronic systolic (congestive) heart failure; K86.2 Cyst of pancreas; Z86.2 Personal history of diseases of the blood and blood-forming organs and certain disorders involving the immune mechanism; Z87.01 Personal history of pneumonia (recurrent); K21.9 Gastro-esophageal reflux disease without esophagitis; G47.33 Obstructive sleep apnea (adult) (pediatric); Z91.199 Patient's noncompliance with other medical treatment and regimen due to unspecified reason; F41.9 Anxiety disorder, unspecified; Z96.643 Presence of artificial hip joint, bilateral; Z96.611 Presence of right artificial shoulder joint; Z82.49 Family history of ischemic heart disease and other diseases of the circulatory system; Z80.3 Family history of malignant neoplasm of breast; Z88.0 Allergy status to penicillin; E27.9 Disorder of adrenal gland, unspecified; E66.9 Obesity, unspecified; Z68.30 Body mass index [BMI] 30.0-30.9, adult; D69.59 Other secondary thrombocytopenia; D72.819 Decreased white blood cell count, unspecified; E11.9 Type 2 diabetes mellitus without complications; Z79.84 Long term (current) use of oral hypoglycemic drugs; E78.00 Pure hypercholesterolemia, unspecified; E87.8 Other disorders of electrolyte and fluid balance, not elsewhere classified; K31.7 Polyp of stomach and duodenum; K57.30 Diverticulosis of large intestine without perforation or abscess without bleeding; K82.8 Other specified diseases of gallbladder; N20.0 Calculus of kidney; R09.02 Hypoxemia; Z79.899 Other long term (current) drug therapy; Z11.52 Encounter for screening for COVID-19; J01.00 Acute maxillary sinusitis, unspecified
CPT/HCPCS: 88172; 88173; 88305; 74177; 74181; 74330; 76000; 76700; 80053; 80061; 81003; 82248; 82378; 83605; 83690; 83735; 84145; 85025; 85610; 86301; 86705; 86706; 86709; 86803; 87340; 87502; 87811; 88112; 88177; 94640; 96360; 99285; C1769; C2617; Q9967